=== PATIENT | male | born 1970 | race Hispanic/Latino ===

== ENCOUNTER 2024-10-17 06:47 | Emergency (ER) | payer OTHER ==
--- OUTSIDE RECORDS SUMMARY | 2024-10-17 06:50 | XMS REPORT | Continuity of Care Document ---
Author Name Unknown Address [address] [facility] [address] [place] [address] [facility] thconnect Address [address] [facility] [address] [place] [address] Care Team Providers Care Online Marketing Coordinator Name Role Phone Pcp, Patient Does Not Have A Primary Care Physic marah WESLEY SIMS Attending Clinician August Melendez RN, Lazaro Regan Attending Clinician Unavail darnell Toro MD, Sandra Attending Clinician [phone] Chris Levine MD Attending Clinician [phone] CHRIS LEVINE Attending Clinician Unavailable Paulina Silva Attending Clinician Unavailable Chris Levine MD Admitting Clinician [phone] Physician, No Primary or Family Admitting Clinic marah Unavailable Payers Payer Name Policy Type Policy Number Effective Date Expirati on Date Source Problems Condition Name Condition Details Condition Category Status Onset Date Resolution Date Last Treatment Date Treating Clinician Comments Source AV fistula occlusion, initial encounter AV fistula occlusion, initial encounter Disease Active 11-04 00:00: 00 [facility] ESRD on dialysis ESRD on dialysis Disease Active 11-04 00:00: 00 [facility] Allergies, Adverse Reactions, Alerts Allergy Name Allergy Type Status Severity Reaction(s) Onset Date Inactive Date Treating Clinician Comments Source Latex Propensi ty to adverse reaction s Active Unknown - See comments 11-04 00:00: 00 Peels skin [facility] Penicill in Propensi ty to adverse reaction s Active Hives 11-04 00:00: 00 [facility] PENICILL IN DRUG INGREDI Active Hives 11-04 00:00: 00 [facility] LATEX DRUG INGREDI Active Unknown-Cmnt 11-04 00:00: 00 [facility] penicill in G DA Active MO RASH-HIVES 2022-08 006 00:00: 00 [facility] NO KNOWN ALLERGIE S Drug Class Active [facility] Social History Social Habit Start Date Stop Date Quantity Comments [facility] function 2023-11-07 00:00:00 2023-11-07 00:00:00 [facility] Sex Assigned At 1970 00:00:00 1970 00:00:00 [facility] Smoking Status Start Date Stop Date Source Tobacco smoking consumption unknown [facility] Medications Ordered Medication Name Filled Medication Name Start Date Stop Date Current Medication? Ordering Clinician Indication Dosage Frequency Signature (SIG) Comments Components Source levothyroxi ne 25 mcg tablet 11-08 00:00: 00 02-07 04:59 :00 No [id number] 12.5ug Take 0.5 tablets by mouth every morning for 90 days. [facility] lidocaine 1% (PF) (XYLOCAINE) injection 0.3 mL 11-07 16:45: 00 11-07 15:34 :00 No [id number] .3mL 0.3 mL, Infiltrati on, DIALYSIS ONCE - [facility], 1 dose, On Tue11/08/23 at 1145, Routine [facility] aspirin 81 mg chewable tablet 11-07 00:00: 00 Yes [id number] 81mg Take 1 tablet by mouth in the morning. [facility] acetaminoph en 325 mg tablet 11-07 00:00: 00 11-08 04:59 :00 No [id number] 650mg Take 2 tablets by mouth every 6 (six) hours as needed for Pain (scale 1-3). [facility] atorvastati n 10 mg tablet 11-07 00:00: 00 02-06 04:59 :00 No [id number] 10mg Take 1 tablet by mouth at bedtime for 90 days. [facility] clopidogreL 75 mg tablet 11-07 00:00: 00 02-06 04:59 :00 No [id number] 75mg Take 1 tablet by mouth in the morning for 90 days. [facility] HYDROcodone -acetaminop hen 5-325 mg tablet 11-07 00:00: 00 11-15 04:59 :00 No [id number] 1{tbl} Take 1 tablet by mouth every 6 (six) hours as needed for Pain (scale 4-6) for up to 7 days. Indication s: acute pain [facility] clopidogreL (PLAVIX) 75 mg tablet 75 mg 11-06 14:00: 00 Yes 75mg 75 mg, Oral, DAILY, First dose on Tue11/07/23 at 0900, Until Discontinu ed, Routine [facility] hydralAZINE (APRESOLINE ) injection 10 mg 11-06 00:08: 09 Yes 10mg 10 mg, Slow IV Push, Q4HPRN, Starting on 11/06/23 at 1908, Until Discontinu ed, Routine, DBP=>100; SBP=>180, and HR < 70 [facility] labetaloL (NORMODYNE) injection 10 mg 11-06 00:08: 09 Yes 10mg 10 mg, Slow IV Push, Q4HPRN, Starting on 11/06/23 at 1908, Until Discontinu ed, Routine, SBP > 180 and HR > 70 [facility] clopidogreL (PLAVIX) 300 mg tablet 300 mg 11-05 23:45: 00 11-06 03:07 :00 No 300mg 300 mg, Oral, ONCE, 1 dose, On Tue11/06/23 at 1845, BRIANA [facility] aspirin chewable tablet 81 mg 11-05 14:00: 00 Yes 81mg 81 mg, Oral, DAILY, First dose on 11/06/23 at 0900, Until Discontinu ed, Routine [facility] pantoprazol e (PROTONIX) EC tablet 40 mg 11-05 14:00: 00 Yes 40mg 40 mg, Oral, DAILY, First dose on Tue11/06/23 at 0900, Until Discontinu ed, Routine
Indicatio n for use: Coagulopat hy - Prothrombi n Time > 1.5 times the control values [facility] levothyroxi ne (SYNTHROID) tablet 12.5 mcg 11-05 11:00: 00 Yes 12.5ug 12.5 mcg, Oral, QAM-0600, First dose on [place] 11/06/23 at 0600, Until Discontinu ed, Routine [facility] heparin (porcine) injection 5,000 Units 11-05 03:00: 00 Yes 5000U 5,000 Units, Subcutaneo us, Q8H, First dose on 11/05/23 at 2200, Until Discontinu ed, Routine [facility] Lidocaine (LIDOCARE) 4 % patch 1 Patch 11-05 02:30: 00 11-05 14:13 :00 No 1{patch } 1 Patch, Topical, Administer over 12 Hours, ONCE, 1 dose, On 11/05/23 at 2130, Routine [facility] atorvastati n (LIPITOR) tablet 10 mg 11-05 02:00: 00 Yes 10mg 10 mg, Oral, QHS, First dose on 11/05/23 at 2100, Until Discontinu ed, Routine [facility] FENTanyl PF (SUBLIMAZE (PF)) injection 25 mcg 11-05 01:32: 17 Yes 25ug 25 mcg, Slow IV Push, Q2HPRN, Starting on 11/05/23 at 2031, Until Discontinu ed, Routine, Pain (scale 7-10) [facility] HYDROcodone -acetaminop hen (NORCO 5) 5-325 mg tablet 1 tablet 11-05 01:31: 15 Yes 1{tbl} 1 tablet, Oral, Q6HPRN, Starting on 11/05/23 at 203, Until Discontinu ed, Routine, Pain (scale 4-6) [facility] hydralAZINE (APRESOLINE ) injection 10 mg 11-04 19:32: 57 11-06 00:08 :37 No 10mg 10 mg, Slow IV Push, Q4HPRN, Starting on 11/05/23 at 1432, Until 11/06/23 at 1908, Routine, DBP=>100; SBP=>180 [facility] acetaminoph en (TYLENOL) tablet 650 mg 11-04 19:32: 48 Yes 650mg 650 mg, Oral, Q6HPRN, Starting on 11/05/23 at 1432, Until Discontinu ed, Routine, Pain (scale 1-3) [facility] ondansetron (ZOFRAN (PF)) injection 4 mg 11-04 19:30: 50 Yes 4mg 4 mg, Slow IV Push, Q6HPRN, Starting on 11/05/23 at 1430, Until Discontinu ed, Routine, Nausea and Vomiting (N/V) [facility] Vital Signs Vital Name Observation Time Observation Value Comments S ource Systolic blood pressure 2023-11-08 19:03:00 177 mm[Hg] [facility] Diastolic blood pressure 2023-11-08 19:03:00 85 mm[Hg] [facility] Heart rate 2023-11-08 19:03:00 91 /min [facility] Body temperature 2023-11-08 18:42:00 36 Jennifer [facility] Respiratory rate 2023-11-08 18:42:00 18 /min [facility] Oxygen saturation in Arterial blood by Pulse oximetry 2023-11-08 18:42:00 92 /min [facility] Body weight 2023-11-08 17:57:00 116.6 kg [facility] Procedures Procedure Date / Time Performed Performing Clinician Source PHOSPHORUS 2023-11-08 10:12:[address] [facility] MAGNESIUM 2023-11-08 10:12:[address] [facility] BASIC METABOLIC PANEL (NA, K, CL, CO2, GLUCOSE, BUN, CREATININE, CA) 2023-11-08 10:12:[address] [facility] CBC WITHOUT DIFF 2023-11-08 10:12:[address] [facility] HEPATITIS B SURFACE ANTIBODY 2023-11-08 10:12:00 Lexie Flowers [facility] HEPATITIS B SURFACE ANTIGEN 2023-11-08 10:12:00 Lexie Flowers [facility] PHOSPHORUS 2023-11-07 09:26:[address] [facility] MAGNESIUM 2023-11-07 09:26:[address] [facility] BASIC METABOLIC PANEL (NA, K, CL, CO2, GLUCOSE, BUN, CREATININE, CA) 2023-11-07 09:26:[address] [facility] CBC WITHOUT DIFF 2023-11-07 09:26:[address] [facility] FL TIME OR (NON-REPORTABLE) 2023-11-06 22:55:00 Mora Russell [facility] ARTERIOVENOUS FISTULA THROMBECTOMY 2023-11-06 20:34:00 Chris Levine [facility] ENDOVASCULAR UPPER EXTREMITY ANGIOPLASTY 2023-11-06 20:34:00 Chris Levine [facility] VASCULAR STENTING 2023-11-06 20:34:00 Chris Levine [facility] BASIC METABOLIC PANEL (NA, K, CL, CO2, GLUCOSE, BUN, CREATININE, CA) 2023-11-06 11:19:00 Katharina Russell [facility] CBC WITH DIFF 2023-11-06 11:19:00 Katharina Russell [facility] COMP. METABOLIC PANEL ([id number]) 2023-11-05 18:46:00 Sandra Toro [facility] CBC WITH DIFF 2023-11-05 18:46:00 Sandra Toro [facility] PROTHROMBIN TIME / INR 2023-11-05 18:46:00 Sandra Toro [facility] ACTIVATED PARTIAL THRMPLAS HILDA 2023-11-05 18:46:00 Sandra Toro [facility] CONSENT/REFUSAL FOR DIAGNOSIS AND TREATMENT 2023-11-05 17:44:50 Doctor Unassigned, Leota [facility] Encounters Start Date/Time End Date/Time Encounter Type Admission Type Attending [facility] Care Facility Care Department Encounter ID Source 2024-02-10 16:50:00 2024-02-10 23:05:00 Emergency E MARY SIMSN [facility] [id number] 00 [facility] 2023-11-09 00:00:00 2023-11-09 00:00:00 Transition of Care Lazaro Melendez [place] [id number] [facility] 2023-11-05 13:14:00 2023-11-08 14:56:00 Hospital Encounter Sandra Toro [facility] [id number] [facility] 2023-11-05 13:14:00 2023-11-08 14:56:00 Inpatient X CHRIS LEVINE [facility] [id number] [facility] 2023-05-20 17:45:00 2023-05-20 19:20:00 Emergency EM Paulina Silva [facility] ER [id number] [facility] Results Test Description Test Time Test Comments Results Resul t Comments Source [place] TIME OR (NON-REPORTABLE) 2023-11-07 05:50:12 These images do not require a Radiology diagnostic report[facility] [id number] 19:07:12* Test Item Value Reference Range Interpretation Comme nts APTT Patient (test code = 3173-2) 38 26-36 H Lab Interpretation (test cod e = 45922-7) Abnormal [facility] / [id number] 19:07:12* Test Item Value Reference Range Interpretation Comme nts PROTIME PATIENT (test code = 5964-2) 12.0 10.1-12.6 INR (test code = 6301-6) 1.1 Normal INR <1.1; Warfarin Therapeutic range 2.0 to 3.0 or 2.5 to 3.5, depending upon the indications. Lab Interpretation (test code = 88325-0) Normal [facility] WITH [id number] 19:00:14* Test Item Value Reference Range Interpretation Comme nts WBC (test code = 6690-2) 7.39 4.20-10.70 RBC (test code = 789-8) 2.92 4.26-5.52 L HGB (test code = 718-7) 9.1 g/dL 12.2-16.4 L HCT (test code = 4544-3) 27.9 % 38.4-49.3 L MCV (test code = 787-2) 95.5 fL 81.7-95.6 MCH (test code = 785-6) 31.2 pg 26.1-32.7 MCHC (test code = 786-4) 32.6 g/dL 31.2-35.0 RDW-SD (test code = 85822-6) 47.9 fL 38.5-51.6 RDW-CV (test code = 788-0) 13.8 % 12.1-15.4 PLT (test code = 777-3) 184 150-328 MPV (test code = 00788-0) 9.4 fL 9.8-13.0 L NRBC/100 WBC (test code = 2778775884) 0.0 0.0-10.0 NRBC x10^3 (test code = 6621658793) See_Comment [Automated messa ge] The system which generated this result transmitted reference range: 10*3/?L. The reference range was not used to interpret this result as normal/abnormal. GRAN MAT (NEUT) % (test code = 770-8) 79.6 % IMM GRAN % (test code = 5848746774) 0.50 % LYMPH % (test code = 736-9) 10.0 % MONO % (test code = 5905-5) 7.2 % EOS % (test code = 713-8) 2.0 % BASO % (test code = 706-2) 0.7 % GRAN MAT x10^3(ANC) (test code = 8150824619) 5.88 10*3/uL 1.99-6.95 IMM GRAN x10^3 (test code = 4744159486) 0.04 10*3/uL 0.00-0.06 LYMPH x10^3 (test code = 731-0) 0.74 10*3/uL 1.09-3.23 L MONO x10^3 (test code = 742-7) 0.53 10*3/uL 0.36-1.02 EOS x10^3 (test code = 711-2) 0.15 10*3/uL 0.06-0.53 BASO x10^3 (test code = 704-7) 0.05 10*3/uL 0.01-0.09 Lab Interpretation (test code = 79176-7) Abnormal [facility] [id number] 19:00:00* Test Item Value Reference Range Interpretation Comme nts LACTIC ACID (test code = LACT) 1.4 MMOL/L 0.5-2.2 N BASIC METABOLIC [id number] 18:58:00* Test Item Value Reference Range Interpretation Comme nts SODIUM (test code = NA) 132 MMOL/L 133-145 L POTASSIUM (test code = K) 3.9 MMOL/L 3.6-5.2 N CHLORIDE (test code = CL) 93 MMOL/L 100-108 L CARBON DIOXIDE (test code = CO2) 31 MMOL/L 22-32 N GLUCOSE (test code = GLU) 271 MG/DL 65-99 H Results of this assay method may be falsely depressed orelevated if patient is taking sulfasalazine. BLOOD UREA NITROGEN (test code = BUN) 22 MG/DL 6-20 H GLOMERULAR FILTRATION RATE (test code = GFR) 14 56-130 L The Glomerular Filtration Rate is a calculated parameterbased on serum Creatinine, patient age and sex. GFR valuesless than 60 mL/min/1.73 square meters are indicative ofChronic Kidney Disease. Values less than 15 mL/min/1.73square meters indicate Kidney failure. The calculation forGFR is based on the CKD-EPI (2020) calculation. This formulais race indifferent and is the recommended formula for GFRby the National Kidney Foundation for Adults.The GFR will not calculate if the sex is unknown or if thepatient's age is <18 years. CREATININE (test code = CREAT) 4.66 MG/DL 0.60-1.00 H CALCIUM (test code = CA) 8.5 MG/DL 8.7-10.5 L HEPATIC FUNCTION [id number] 18:58:00* Test Item Value Reference Range Interpretation Comme nts TOTAL PROTEIN (test code = PROT) 8.0 G/DL 6.4-8.2 N ALBUMIN (test code = ALB) 3.2 G/DL 3.4-5.0 L GLOBULIN (test code = GLOB) 4.8 G/DL 1.5-3.8 H ALBUMIN/GLOBULIN RATIO (test code = A/G) 0.7 1.1-2.2 L BILIRUBIN TOTAL (test code = BILT) 0.3 MG/DL 0.0-1.0 N BILIRUBIN DIRECT (test code = BILD) 0.1 MG/DL 0.0-0.3 N SGOT/AST (test code = AST) 4 Units/L 15-37 L Results of this assay method may be falsely depressed orelevated if patient is taking sulfasalazine. SGPT/ALT (test code = ALT) 14 Units/L 30-65 L Results of this assay method may be falsely depressed orelevated if patient is taking sulfasalazine. ALKALINE PHOSPHATASE TOTAL (test code = ALKP) 85 Units/L 50-136 N BILIRUBIN INDIRECT (test code = BILIND) 0.2 MG/DL 0.0-0.7 N TROP-I HIGH [id number] 18:58:00* Test Item Value Reference Range Interpretation Comme nts TROP-I HIGH SENSITIVITY (test code = TROPIHS) 14 ng/L < 76 Results above 51 for females and 76 for males are consistent with IFCC Committee recommendations to use the 99th percentile of a normal population as a reference decision-limit. - The use of serial sampling and testing protocol is a recommended practive.- An elevated high sensitiveity troponin level alone is often not sufficient for diagnosis of myocardial infarction.- In order to distinguish acute elevations of high sensitivity troponin from other clinical conditions, the Fourth [place] Definition of Myocardial Infarction stresses clinical assessment and demonstration of a rise and/or fall in serial troponin results above the upper reference limit.Results of this assay method may be falsely depressed orelevated if patient is taking high doses of Biotin. CBC W/AUTO [id number] 18:44:00* Test Item Value Reference Range Interpretation Comme nts WHITE BLOOD CELL (test code = WBC) 10.77 x10 3/uL 4.80-10.80 N RED BLOOD CELL (test code = RBC) 3.60 x10 6/uL 4.7-6.1 L HEMOGLOBIN (test code = HGB) 11.2 G/DL 14.0-17.0 L HEMATOCRIT (test code = HCT) 35.1 % 42-52 L MEAN CELL VOLUME (test code = MCV) 97.5 FL 80-94 H MEAN CELL HGB (test code = MCH) 31.1 PG 27-31 H MEAN CELL HGB CONCENTRATION (test code = MCHC) 31.9 G/DL 33-37 L RED CELL DISTRIBUTION WIDTH (test code = RDW) 16.0 % 11.5-14.5 H PLATELET COUNT (test code = PLT) 220 x10 3/uL 150-450 N MEAN PLATELET VOLUME (test code = MPV) 8.8 FL 7.4-10.4 N NEUTROPHIL % (test code = NT%) 81.2 % 42-86 N LYMPHOCYTE % (test code = LY%) 9.7 % 24-44 L MONOCYTE % (test code = MO%) 6.9 % 0.0-4.0 H EOSINOPHIL % (test code = EO%) 1.9 % 0.0-2.7 N BASOPHIL % (test code = BA%) 0.3 % 0.0-0.5 N NEUTROPHIL # (test code = NT#) 8.76 x10 3/uL 1.8-7.7 H LYMPHOCYTE # (test code = LY#) 1.04 x10 3/uL 1.0-4.8 N MONOCYTE # (test code = MO#) 0.74 x10 3/uL 0.0-0.8 N EOSINOPHIL # (test code = EO#) 0.20 x10 3/uL 0.0-0.5 N BASOPHIL # (test code = BA#) 0.03 x10 3/uL 0.0-0.2 N Consult Notes Date/Time Note Provider Source 2023-11-05 15:00:34 Associated Order(s): CONSULT VASCULAR SURGERY VASCULAR SURGERY CONSULT Date of Service: 11/05/2023 Requesting Physician: ED Chief Complaint: AVG malfunction HPI Mr. Garcia is a 53 yo male who presents with LUE AVG malfunction. Patient is ESRD, had LUE AVG placed in [place] 5 years ago. Has been working fine until last night, after dialysis session patient go home and noted no thrill or pulse in the graft. His session yesterday went fine before that. He reports that his only ever access ever was a RIJ permcath but that came out 5 years ago. Has never had issues with the graft before. CURRENT HOSPITAL MEDICATIONS Current Facility-Administered Medications Medication Dose Route Frequency Last Rate Last Admin acetaminophen (TYLENOL) tablet 650 mg 650 mg Oral Q6HPRN [START ON 11/06/2023] aspirin chewable tablet 81 mg 81 mg Oral DAILY atorvastatin (LIPITOR) tablet 10 mg 10 mg Oral QHS heparin (porcine) injection 5,000 Units 5,000 Units Subcutaneous Q8H hydralAZINE (APRESOLINE) injection 10 mg 10 mg Slow IV Push Q4HPRN ondansetron (ZOFRAN (PF)) injection 4 mg 4 mg Slow IV Push Q6HPRN [START ON 11/06/2023] pantoprazole (PROTONIX) EC tablet 40 mg 40 mg Oral DAILY No current outpatient medications on file. HISTORIES Past Medical History: Diagnosis Date ESRD on dialysis Past Surgical History: Procedure Laterality Date ARTERIOVENOUS FISTULA CREATION Left No family history on file. Social History Socioeconomic History Marital status: Physical Exam Vitals: Vitals: 11/05/23 1311 11/05/23 1349 11/05/23 1400 BP: (!) 183/86 (!) 187/101 (!) 188/79 Pulse: 84 80 81 Resp: 18 18 18 Temp: 36.9 ?C (98.5 ?F) 36.9 ?C (98.5 ?F) SpO2: 96% 96% Weight: 115 kg (253 lb 8.5 oz) (-)=Negative,(+)=Positive General: awake and alert Extremity: LUE AVG (appears to be brachial/basilic) without any pulse/thrill throughout most although there is a faint pulse in the furthest distal segment. No arm swelling or bruising. Palpable radial pulse. LABORATORY Labs reviewed RADIOLOGY Radiology Reviewed PATHOLOGY N/a ASSESSMENT/PLAN: Mr. Garcia is a 53 yo male who presents with LUE AVG malfunction. Admit to vascular surgery Post and consent for LUE AVG thrombectomy tomorrow 11/04 Pre procedure CLD past midnight K 4.2, no need for urgent dialysis access, labs tomorrow Patient discussed with Dr. Levine. Katharina Russell MD General Surgery PGY-4 Associated attestation - Chris Levine MD - 11/06/2023 8:39 AM CDT I was present and performed the physical exam on 11/05/2023 and discussed the care with the resident staff, Dr. Russell. I agree with the note as written and I participated in all of the haque aspects of the decision making. Chris Levine MD [facility] - Health History and Physical Notes Date/Time Note Provider Source 2023-11-05 15:08:24 For full H&P please see consult note by me 11/05/2023 Katharina Russell MD General Surgery PGY-4 Associated attestation - Chris Levine MD - 11/06/2023 8:25 AM CDT I was present and performed the physical exam on 11/06/2023 and discussed the care with the resident staff, Dr. Russell. I agree with the note as written and I participated in all of the haque aspects of the decision making. Chris Levine MD [facility] - Health Notes Date/Time Note Provider Source 2023-11-09 15:48:12 TRANSITIONAL CARE MANAGEMENT ASSESSMENT 11/09/2023 Maurizio Garcia [id number] Maurizio Garcia is a 53 year old /White male was admitted on 11/05/[address] He was discharged on 11/08/23 with discharge disposition of HR- Routine Discharge. Admitting Physician: Chris Levine Discharge Diagnosis: Lt AVG malfunction No linked episodes TCM [id number] outreach documentation: CM made follow up call to patient post-discharge. No answer and call went to voicemail. CM left a discreet message with purpose of call and CM's call back information. Two attempts made to reach patient. Discharge Assessment Chart Assessed: 11/09/23 TCM Outreach Completed: 11/09/23 Future Appointments: [facility] 2023-11-09 12:06:29 CM made follow up call to patient post-discharge. No answer and call went to voicemail. CM left a discreet message with purpose of call and CM's call back information. [facility] 2023-11-08 14:36:17 Problem: Discharge Planning Goal: Adequate for discharge Outcome: Progressing as expected Goal: Effective communication Outcome: Progressing as expected Problem: Skin integrity Impaired (Risk or Actual) Goal: Wound healing Outcome: Progressing as expected Problem: Bleeding, Risk of Goal: Absence of impaired coagulation signs and symptoms Outcome: Progressing as expected Goal: Absence of active bleeding Outcome: Progressing as expected Problem: Infection Risk Goal: Absence of infection Outcome: Progressing as expected Problem: Procedure Routine Goal: Absence of post-procedure complications Outcome: Progressing as expected Goal: Knowledge of procedure Outcome: Progressing as expected [facility] Vita Pal RN [facility] 2023-11-08 12:41:35 HEMODIALYSIS NURSING NOTE Number Hours: 4.0 hours Bath: 2K 3 Calcium (standard dialysate) Heparin: zero Access: left AVG upper arm Net UF: 4 liters Weight: pre 120.6 kg, post 116.6 kg Post BP 168/70 Post Pulse 89 Antibiotics/Medications Given: none Complications/Events of Treatment: had to recannulate venous site due to needle clotting. Was able to run full session at BFR of 350. No complaints reported by patient. Tolerated UF goal well. No prolonged bleeding at site post HD. Verbal report given to: DAVIDA Molina Mode of Transport Back to Unit: wheelchair and accompanied by transporter See hemodialysis flowsheet for details of treatment. Abby Davis RN [facility] 2023-11-08 10:22:34 Hemodialysis Plan of care reviewed r/t treatment time, UF goal. I reviewed care of dialysis AVG during tx. Pt updated during tx as needed. I reviewed possible side effects of HD tx, such as s/s of hypotension, weakness, dizziness, H/A, cramping (during tx and at rare times after tx), n/v, vision changes, CP or any other concerns. Patient acknowledge understanding of treatment plan. Problem: Procedure Routine Goal: Absence of post-procedure complications Outcome: Progressing as expected Note: Hemodialysis tx Goal: Knowledge of procedure Outcome: Progressing as expected Note: Hemodialysis tx T [facility] 2023-11-08 05:27:55 Problem: Discharge Planning Goal: Adequate for discharge Outcome: Progressing as expected Goal: Effective communication Outcome: Progressing as expected Problem: Skin integrity Impaired (Risk or Actual) Goal: Wound healing Outcome: Progressing as expected Problem: Bleeding, Risk of Goal: Absence of impaired coagulation signs and symptoms Outcome: Progressing as expected Goal: Absence of active bleeding Outcome: Progressing as expected Problem: Infection Risk Goal: Absence of infection Outcome: Progressing as expected ILLO Gudino RN [facility] 2023-11-07 05:01:08 Problem: Discharge Planning Goal: Adequate for discharge Outcome: Progressing as expected Goal: Effective communication Outcome: Progressing as expected Problem: Skin integrity Impaired (Risk or Actual) Goal: Wound healing Outcome: Progressing as expected Problem: Bleeding, Risk of Goal: Absence of impaired coagulation signs and symptoms Outcome: Progressing as expected Goal: Absence of active bleeding Outcome: Progressing as expected Problem: Infection Risk Goal: Absence of infection Outcome: Progressing as expected [facility] 2023-11-06 18:02:16 1635-SURGEON, DR. LEVINE, AND ANIMAL SHELTER MANAGER, DR. DAY NOTIFIED OF LATEX PRODUCT BEING USED (ESTHELA) IN SETTING OF LATEX ALLERGY. STATES WILL MONITOR PT FOR S/S. Jael Alcala RN [facility] 2023-11-06 16:28:00 FULL OPERATIVE NOTE Date of Surgery: 11/06/2023 Faculty physician: Chris Levine MD Resident physician: Kaitlynn Grace MD Anesthesia Type: General Pre-operative diagnosis: End stage renal disease, malfunction of left upper extremity arteriovenous graft Post-operative diagnosis: Same Indication: Maurizio Garcia is a 53 year old male with above diagnosis requiring intervention to reestablish dialysis access. Plan is to perform thrombectomy and fistulogram to treat any underlying disease. Risks and benefits of the procedure were discussed with the patient who agrees to proceed. 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 from being stuck the most; which had moderate response to balloon angioplasty - left axillary vein just proximal to the anastomosis has total occlusion, large thrombus just distal to the venous anastomosis, then a large collateral to another venous collateral in the upper arm which provides the outflow for the graft - left axillary vein occlusion successfully recanalized with satisfactory brisk flow into the central veins where no stenosis is visualized - good thrill over graft and palpable radial pulse at the end of the case Procedure: The patient was brought to the operating room and positioned supine. General anesthesia was induced. Left upper extremity was prepped and draped in the usual sterile fashion. Timeout was performed. A longitudinal incision was made distal to the arterial anastomosis in the distal arm along the graft. This was deepened with electrocautery and the graft was circumferentially dissected out. A transverse incision was made in the graft about half of the circumference. Venous limb was controlled with umbilical tape. Open thrombectomy of the venous limb using 5 Fr Esthela embolectomy catheter was performed. There were multiple areas of resistance and a 0.035 stiff glidewire was used to guide the catheter past the areas of stenoses. After several passes and evacuation of thrombus, the attention was turned to the arterial limb. The venous limb was clamped. Open thrombectomy was performed in similar fashion and robust flow was reestablished. The arterial limb was clamped. An 11 Fr sheath was introduced into the venous limb and secured with umbilical tape. The wire was again advanced into the venous limb under fluoroscopy but was unable to guide the wire into the axillary vein. Fistulogram demonstrated above findings with total occlusion of the axillary vein. Angled glide catheter was used to support the wire and the occlusion was successfully crossed this time. The wire was advanced into the superior vena cava. The catheter was removed, and the occlusion was treated with 8 x 60 mm Cataumet balloon. Fistulogram demonstrated recanalization of the axillary vein. The lesion was treated with 8 x 60 mm Innova stent. The completion looked satisfactory. Fistulogram of the venous limb demonstrated severe diffuse stenosis at the site of frequent access. This was treated with 6 x 60 mm Cataumet balloon with moderate response. Central venogram demonstrated patent system. The decision was made to close the graftotomy. The sheath was removed, and the venous limb was clamped. Graft was closed with interrupted 5-0 Prolene sutures. After release of the clamps and completion of graftotomy closure, the thrill was felt to be weak despite excellent back bleeding from both limbs. The limbs were clamped, the sutures cut, and back bleeding was examined again which appeared appropriate. The graftotomy was closed in the same fashion. This time weak thrill was palpable over the graft and the decision was made to close. The incision was closexd with interrupted dermal 3-0 vicryl sutures. The skin was closed with dermabond. Patient was transiently hypoxic and hypotensive, but was resuscitated by anesthesia. The patient tolerated the procedure well and was taken to the postanesthesia care unit in stable condition. Complications: none apparent Estimated blood loss: 100 mL Specimens: none Drains: none Specific postop instructions: - Ok to use the graft for dialysis, avoid around the incision - Plavix loading dose today, 75 mg daily from tomorrow Kaitlynn Grace MD Vascular Surgery PGY-3 Associated attestation - Chris Levine MD - 11/07/2023 2:06 PM CDT I was present in the OR for all of the haque portions of the procedure and immediately available throughout the entire procedure. Chris Levine MD INGE-VASCULAR SURGERY [facility] 2023-11-05 14:46:02 Report called to receiving nurse 9C. Answered all questions. Ready to receive pt. Imani Rodriguez RN [facility] 2023-11-05 13:08:30 Maurizio Garcia is a 53 year old male received from triage with CC of L AVF malfunction. Pt stated, "I have HD MWF,. The L AVF clogged yesterday during HD. HD was completed. Pain 6/10, soreness. No fever, chills, or bleeding. Happened two years ago." Pt is A/Ox4/A w/cane, and L BKA, skin w/d/I, L AVF, GCS 15 and sending to a room for evaluation. [facility] 2023-11-05 12:38:[address] [facility] Emergency Department Note Patient Name: Maurizio Garcia Date of : 1970 53 year old male Treatment Room: 117/117 Primary Care Physician: No primary care provider on file. Patient Escorted by: Family [5] Mode of Arrival: Personal means [1] EMS Treatment Prior to ED Arrival: Exam Limited by: none Travel and Exposure Screening: Symptoms Does patient have any of these symptoms?: (not recorded) Exposure Screening Has patient had contact with someone with a communicable disease in the last month?: (not recorded) Diseases exposed to:: (not recorded) Is Patient ?: (not recorded) Exposure Date: (not recorded) Chief Complaint: No chief complaint on file. History of Present Illness: complains of L AVF malfunction. Has HD MWF. He states the AVF was accessed in the wrong place yesterday and it would not work but then another nurse accessed it more proximally and was able to complete his dialysis session. However, he states that when he woke up today his arm was swollen and tender proximal to the fistula and there was no thrill. Something similar happened 2 years ago and they had to do surgery to open it up again. Pain 6/10, soreness. No fever, chills, or bleeding. Review of Systems: Review of Systems Constitutional: Negative for chills and fever. SEE HPI for other pertinent positives & negatives. HENT: Negative for congestion, sinus pressure and sore throat. Respiratory: Negative for cough, chest tightness and shortness of breath. Cardiovascular: Negative for chest pain, palpitations and leg swelling. Gastrointestinal: Negative for abdominal pain, diarrhea, nausea and vomiting. Genitourinary: Negative for dysuria and hematuria. Musculoskeletal: Negative for arthralgias, back pain and myalgias. Except as in HPI Skin: Negative for rash and wound. Neurological: Negative for dizziness, weakness and headaches. Past Medical History/Immunizations: Past Medical History: Diagnosis Date ESRD on dialysis Problem List: There is no problem list on file for this patient. Allergies: Allergies Allergen Reactions Latex Unknown - See comments Peels skin Penicillin Hives Past Social History: Substance & Sexual Activity No substance use or sexual activity history on file. Past Surgical History: Past Surgical History: Procedure Laterality Date ARTERIOVENOUS FISTULA CREATION Left Physical Exam: ED Triage Vitals [11/05/23 1311] Weight 115 kg (253 lb 8.5 oz) Actual or estimated Height BP (!) 183/86 Pulse 84 Resp 18 Temp 36.9 ?C (98.5 ?F) Temp src SpO2 96 % Measured on Room air Physical Exam Vitals and nursing note reviewed. Constitutional: General: He is awake. He is not in acute distress. Appearance: Normal appearance. He is well-developed. He is obese. He is not ill-appearing or diaphoretic. HENT: Head: Normocephalic and atraumatic. Eyes: General: No scleral icterus. Extraocular Movements: Extraocular movements intact. Cardiovascular: Rate and Rhythm: Normal rate and regular rhythm. Arteriovenous access: Left arteriovenous access is present. Comments: Left upper arm AV fistula with no thrill Pulmonary: Effort: No accessory muscle usage or respiratory distress. Abdominal: General: There is no distension. Palpations: Abdomen is soft. Abdomen is not rigid. Tenderness: There is no abdominal tenderness. There is no guarding or rebound. Musculoskeletal: General: No tenderness or deformity. Normal range of motion. Left upper arm: Swelling (There is an area proximal to the fistula that is firm and somewhat tender.) present. Right lower leg: No edema. Left Lower Extremity: Left leg is amputated below knee. Skin: General: Skin is warm and dry. Findings: No erythema or rash. Comments: Hyperpigmentation on the right lower leg that the patient states is baseline Neurological: General: No focal deficit present. Mental Status: He is alert and oriented to person, place, and time. Psychiatric: Attention and Perception: He is attentive. Mood and Affect: Mood and affect normal. Speech: Speech normal. Behavior: Behavior is cooperative. Radiology: (Reviewed by me) No results found for this visit on 11/05/23. Lab Results (24h): (Reviewed by me) No results found for this or any previous visit (from the past 24 hour(s)). Orders and Treatments: Orders Placed This Encounter Procedures CBC WITH DIFF ACTIVATED PARTIAL THRMPLAS HILDA PROTHROMBIN TIME / INR COMP. METABOLIC PANEL (12222) Consult Vascular Surgery No orders of the defined types were placed in this encounter. ED COURSE ED Course as of 11/05/23 1931 Sat Nov 05, 2023 1432 Admitted to vascular surgery [] 1413 COMP. METABOLIC PANEL (19677)(!) Hyperglycemia elevated BUN and creatinine, likely unremarkable in this diabetic dialysis patient. [LS] 1413 ACTIVATED PARTIAL THRMPLAS HILDA(!) Coags unremarkable [LS] 1413 PROTHROMBIN TIME / INR [LS] 1412 CBC WITH DIFF(!) Anemic. No old labs to compare but likely insignificant this dialysis patient. [LS] [address] Russell, who will see patient in ED. [LS] ED Course User Index [LS] Sandra Toro MD Diagnosis/Impression as of 11/05/231930 AV fistula occlusion, initial encounter ESRD on dialysis Diagnosis/Impression: ICD-10-CM 1. AV fistula occlusion, initial encounter T82.898A Disposition/Condition: ED Disposition None Discharge Medications: Patient's Medications No medications on file Follow-up: MDM: Medical Decision Making The patient presents with a loss of the usual thrill in his AV fistula. His last dialysis was yesterday. He reports some pain in the arm but declines pain medicine at this time. Will check labs and get a vascular surgery consult. See ED course Problems Addressed: AV fistula occlusion, initial encounter: complicated acute illness or injury ESRD on dialysis: chronic illness or injury Amount and/or Complexity of Data Reviewed Independent Historian: spouse External Data Reviewed: labs and notes. Labs: ordered. Decision-making details documented in ED Course. Discussion of management or test interpretation with external provider(s): see ED Course Risk OTC drugs. Prescription drug management. Decision regarding hospitalization. Portions of this note were completed using [employer]. Occasional phonetic or grammatical errors may escape proofreading. Electronically signed by: Sandra Toro M.D., [facility] Director Workers Compensation Clinical Professor of Emergency Medicine 11/05/2023 1:14 PM Sandra Toro MD 11/05/231930 [facility] 2023-05-20 18:46:00 [facility] ([facility]) OR A CAMPUS OF [facility] EMERGENCY PROVIDER REPORT REPORT#:[id number] REPORT STATUS: Signed DATE:05/20/23 TIME: 1845 PATIENT: MAURIZIO GARCIA UNIT #: [id number] ROOM/BED: AGE: 53 SEX: M PCP PHYS: No Primary or Family Physician SERVICE AUTHOR: Paulina Silva MD * ALL edits or amendments must be made on the electronic/computer document * HPI-Rash/Abscess/Cellulitis Free Text HPI Notes Free Text HPI Notes Patient is a 53-year-old male with a history of hypertension, ESRD on dialysis Tuesday, last dialysis today, denies diabetes, endorses obesity, who presents with a chief complaint of skin infection The patient got a crack in the carotid scab over his left lower extremity amputation site on Tuesday. On Tuesday he began to have some pain at the site, and yesterday and today he has noticed it to be erythematous, warm to touch, painful. No drainage. The patient states that he does not have fever, he does not have body aches, no nausea or vomiting. The patient states that his temperature was 37.9 degrees prior to coming to the ER, at a time during which she had lots of blankets on him. He denies other symptomatology at this time General Initial Greet Date/Time 05/20/231815 Presentation Chief Complaint Red area Review of Systems Focused Review of Systems Constitutional Denies: Chills, Fever. GI Denies: Abdominal pain. Past Medical History - Adult Stated Complaint INFECTION Allergies Coded Allergies: penicillin G (Intermediate, RASH-HIVES 05/20/23) Smoking status for patients 13 years old or older: Former Smoker Physical Exam Vital Signs Vital Signs First Documented: Result Date Time Pulse Ox 96 05/20 1814 B/P 142/75 05/20 1814 B/P Mean 97.5 05/20 1814 O2 Delivery Room air 05/20 1814 Temp 37.5 05/20 1814 Pulse 82 05/20 1814 Resp 16 05/20 1814 Last Documented: Result Date Time Pulse Ox 96 05/20 1814 B/P 142/75 05/20 1814 B/P Mean 97.5 05/20 1814 O2 Delivery Room air 05/20 1814 Temp 37.5 05/20 1814 Pulse 82 05/20 1814 Resp 16 05/20 1814 Review of Vital Signs Reviewed Focused PE General/Const General/Const Awake, Alert Ears/Nose/Throat Ears/Nose/Throat Atraumatic, Airway patent Resp/Chest Respiratory/Chest No respiratory distress, No retractions Cardiovascular Cardiovascular Cap refill not delayed, Peripheral circulation NL MS Upper Extrem Upper Extremity/MS Atraumatic, Inspection NL, Full range of motion MS Lower Extrem Text/Dict Notes left lower extremity amputation site: not fluctuant or indurated. erythematous, warm to touch, slightly tender Skin Skin Warm, Dry Neurologic Neurologic Speech NL, No motor deficits Interpretation Diagnostics Lab Results Interpretation Results Laboratory Tests 05/20/231833: [Embedded Image Not Available] Laboratory Tests: 05/20 Chemistry Sodium (133 - 145 MMOL/L) 132 L Potassium (3.6 - 5.2 MMOL/L) 3.9 Chloride (100 - 108 MMOL/L) 93 L Carbon Dioxide (22 - 32 MMOL/L) 31 BUN (6 - 20 MG/DL) 22 H Creatinine (0.60 - 1.00 MG/DL) 4.66 H Estimated GFR (MDRD) (56 - 130) 14 L Glucose (65 - 99 MG/DL) 271 H Lactic Acid (0.5 - 2.2 MMOL/L) 1.4 Calcium (8.7 - 10.5 MG/DL) 8.5 L Total Bilirubin (0.0 - 1.0 MG/DL) 0.3 Direct Bilirubin (0.0 - 0.3 MG/DL) 0.1 Indirect Bilirubin (0.0 - 0.7 MG/DL) 0.2 AST (15 - 37 Units/L) 4 L ALT (30 - 65 Units/L) 14 L Alkaline Phosphatase (50 - 136 Units/L) 85 Troponin I High Sens (< 76 ng/L) 14 Total Protein (6.4 - 8.2 G/DL) 8.0 Albumin (3.4 - 5.0 G/DL) 3.2 L Globulin (1.5 - 3.8 G/DL) 4.8 H Albumin/Globulin Ratio (1.1 - 2.2) 0.7 L Hematology WBC (4.80 - 10.80 x10 3/uL) 10.77 RBC (4.7 - 6.1 x10 6/uL) 3.60 L Hgb (14.0 - 17.0 G/DL) 11.2 L Hct (42 - 52 %) 35.1 L MCV (80 - 94 FL) 97.5 H MCH (27 - 31 PG) 31.1 H MCHC (33 - 37 G/DL) 31.9 L RDW Coeff of Malu (11.5 - 14.5 %) 16.0 H Plt Count (150 - 450 x10 3/uL) 220 MPV (7.4 - 10.4 FL) 8.8 Neut % (Auto) (42 - 86 %) 81.2 Lymph % (Auto) (24 - 44 %) 9.7 L Faulk % (Auto) (0.0 - 4.0 %) 6.9 H Eos % (Auto) (0.0 - 2.7 %) 1.9 Baso % (Auto) (0.0 - 0.5 %) 0.3 Eos # (Auto) (0.0 - 0.5 x10 3/uL) 0.20 Baso # (Auto) (0.0 - 0.2 x10 3/uL) 0.03 Absolute Neuts (auto) (1.8 - 7.7 x10 3/uL) 8.76 H Absolute Lymphs (auto) (1.0 - 4.8 x10 3/uL) 1.04 Absolute Monos (auto) (0.0 - 0.8 x10 3/uL) 0.74 Microbiology: Date/Time Procedure - Status Source Growth 05/20 1834 Blood Culture - RECD BLOOD 05/20 1828 Blood Culture - RECD BLOOD Lab Statement Laboratory studies reviewed and considered in the medical decision-making. ECG #1 Interpretation Text/Dict Note Rate 80, sinus rhythm, no STEMI Date 05/20/23 Time 1836 Interpreted by and reviewed by me, Independently interpreted Re-Evaluation MDM Free Text MDM Notes Free Text MDM Notes Differential diagnosis included sepsis, hyperkalemia, cellulitis, NSTI The patient has slight erythema, tenderness to the stump. I counseled the patient on his having relative immunocompromise. He has ESRD. I informed him that cellulitis can spread quickly in him. The patient ensured me that he feels fine systematically. He is noted to not have leukocytosis, fever, symptoms of systemic illness at this time. Nevertheless, I offered hospital admission to follow this skin infection at its onset. The patient had a strong desire to start with outpatient treatment, return to emergency department with any worsening of symptomatology. Shared decision-making was made, the patient appearing very reliable, we will pursue outpatient dual antibiotic therapy, with renally dosed medications, with close follow-up with the ER if no resolution. Patient understands that any difficulty obtaining outpatient management, with continuation of the symptomatology, he should have return visit to ER. Social determinants of health were considered in this medical encounter, patient with no access to outpatient follow-up due to recently moving to region, this influence my decision making. ED Course Medication(s) Ordered Medication(s) Ordered: Anti-Infective Agents Sig/Deshawn Start time Last Medication Dose Route Stop Time Status Admin Ceftriaxone Sodium 1,000 MG X1ED STA 05/20 1817 DCDr 05/20 Sodium Chloride 10 ML IV 05/21 Central Nervous System Agents Sig/Deshawn Start time Last Medication Dose Route Stop Time Status Admin Acetaminophen 650 MG X1ED STA 05/20 1911 DC 05/20 PO 05/20 Hydromorphone HCl 0.2 MG X1ED STA 05/20 1911 DC 05/20 IV 05/20 Patient Discharge Departure Vital Signs/Condition Vital Signs First Documented: Result Date Time Pulse Ox 96 05/20 1814 B/P 142/75 05/20 1814 B/P Mean 97.5 05/20 1814 O2 Delivery Room air 05/20 1814 Temp 37.5 05/20 1814 Pulse 82 05/20 1814 Resp 16 05/20 1814 Last Documented: Result Date Time Pulse Ox 96 05/20 1814 B/P 142/75 05/20 1814 B/P Mean 97.5 05/20 1814 O2 Delivery Room air 05/20 1814 Temp 37.5 05/20 1814 Pulse 82 05/20 1814 Resp 16 05/20 1814 All vital signs available at the time of this entry have been reviewed. Condition Stable Clinical Impression Clinical Impression Primary Impression: Left leg cellulitis Disposition Decision Discharge )( Discharged to Home Yes )( Time 1913 )( Date 05/20/23 Discharge/Care Plan (Auto) Prescriptions Current Visit Scripts ACETAMINOPHEN (TYLENOL) 500 MG PO Q6H PRN PRN PAIN ACETAMINOPHEN (TYLENOL) 500 MG PO Q6H PRN PRN PAIN #24 TABS FOR PAIN CEPHALEXIN (KEFLEX) 250 MG PO BID 7 Days #14 CAPS DOXYCYCLINE HYCLATE (VIBRAMYCIN) 100 MG PO Q12H DOXYCYCLINE HYCLATE (VIBRAMYCIN) 100 MG PO Q12H #20 CAPS GABAPENTIN (NEURONTIN) 100 MG PO TID 14 Days #42 CAPS Patient Instructions ED Cellulitis Referrals Provider Referral: Dale Cisse MD Follow-Up: 1-2 Days Notes: PLEASE RETURN TO ER IF WORSENING INFECTION Address: [address] [place] [id number] at [id number] RPT #:[id number] END OF REPORT [facility] 2023-05-20 18:37:00 [id number] [place], [place] PATIENT NAME: MAURIZIO GARCIA ADMIT DATE: 05/20/23 ACCOUNT NO: [id number] ROOM NO: AGE: 53 REPORT TYPE: ELECTROCARDIOGRAM SEX: M : 74 ADMITTING PHYSICIAN: ATTENDING PHYSICIAN:Paulina Silva MD Order: [id number] Test Reason : CODE SEPSIS Test Date/Time Stamp: TueMay 20 2023 18:37:40 Blood Pressure : / mmHG Vent. Rate : 080 BPM Atrial Rate : 080 BPM P-R Int : 196 ms QRS Dur : 088 ms QT Int : 408 ms P-R-T Axes : 016 -01 099 degrees QTc Int : 470 ms Normal sinus rhythm Possible Anterior infarct , age undetermined ST and T wave abnormality, consider lateral ischemia Abnormal ECG Confirmed by Paulina Silva MD ([id number]), photographic editor SHABBIR PEREZ ([id number]) on 06/28/2023 12:05:29 PM Referred By: Self Referred Confirmed by:Paulina Silva MD at 1205 PATIENT NAME: MAURIZIO GARCIA [facility]
[2024-10-17] MEDS ORDERED: FAMOTIDINE 20 MG/2 ML VIAL IV ONE (07:54)
[2024-10-17] MEDS ORDERED: VANCOMYCIN 1 GM/VIAL ONE (07:54)
[2024-10-17] MEDS ORDERED: ACETAMINOPHEN 500 MG TAB ONE (07:54)
[2024-10-17 07:55] LABS: Influenza A Ag Positive; Influenza B Ag Negative; SARS-CoV-2 Antigen Rapid Res Negative (Negative)
[2024-10-17] MEDS ORDERED: NA CHLORIDE 0.9% 250 ML ONE (07:55)
[2024-10-17 08:04] LABS: Absolute Lymphocytes (CBC) 0.2 K/uL (0.7-4.9); Absolute Monocytes 0.7 K/uL (0.1-1.3); Absolute Neutrophil 4.4 K/uL (1.8-8.0); Basophils % 0.4 % (0-1.3); Eosinophils % 0.4 % (0-4.4); Hematocrit 29.4 % (39.6-49.0); Hemoglobin 9.4 g/dL (13.6-17.9); Lymphocytes % 4.1 % (15.3-44.8); MCH 28.6 pg (27.0-35.0); MCHC 31.9 g/dL (32.0-36.0); MCV 89.6 fL (80-100); MPV 7.4 fL (7.6-11.3); Monocytes % 13.1 % (3.3-12.3); Nucleated Red Blood Cells % 0.1 % (0-0); Platelets 210 thou/uL (152-406); RBC Red Blood Cell Count 3.28 M/uL (4.33-5.43); Red Cell Distribution Width 18.5 % (12.1-15.2)
[2024-10-17 08:16] LABS: PT Prothrombin Time 15.3 SECONDS (10.0-13.0); PTT, Activated Partial Thromb 38.7 SECONDS (24.3-36.9); Protime INR 1.36
[2024-10-17 08:34] LABS: Albumin 3.3 g/dL (3.4-5.0); Albumin/Globulin Ratio 0.6 (1.1-1.8); Alkaline Phosphatase 96 U/L (45-117); Anion Gap 13.2 mEq/L (5.0-15.0); BUN Blood Urea Nitrogen 46 mg/dL (7-18); Bicarbonate 26 mEq/L (21-32); Bilirubin Direct 0.2 mg/dL (0-0.2); Bilirubin Indirect, Calculated 0.2 mg/dL (0.2-0.8); Bilirubin Total 0.4 mg/dL (0.2-1.0); Globulin 5.2 g/dL (2.3-3.5); Glomerular Filtration Rate 8 ml/min (=/>90); Glucose Level 130 mg/dL (74-106); Magnesium 2.1 mg/dL (1.6-2.4); NT PRO-BNP 44882 pg/mL (<125); Potassium 5.2 mEq/L (3.5-5.1); Protein, Total 8.5 g/dL (6.4-8.2); Sodium Level 133 mEq/L (136-145)
[2024-10-17 08:35] LABS: ALT/SGPT < 14 U/L (16-61); AST/SGOT < 10 U/L (15-37)
--- NOTE | 2024-10-17 08:42 | RAD REPORT ---
EXAMINATION: ONE VIEW CHEST XR CLINICAL INDICATION: Male, 54 years old.,Cough;Dyspnea TECHNIQUE: Frontal chest projection is submitted. Examination is limited by patient positioning and t echnique. COMPARISON: No prior exam. FINDINGS: Bibasilar and perihilar patchy airspace opacities with layering small to moderate effusions, with mil d central interstitial prominence. No pneumothorax. Heart is mildly enlarged. Mediastinal contours are unremarkable. IMPRESSION: Findings suggesting pulmonary edema with layering effusions as above.
[2024-10-17] MEDS ORDERED: Levofloxacin 750mg IV 750 MG/150 ML BAG IV ONE (09:00)
[2024-10-17] MEDS ORDERED: Levofloxacin500mg IV 500 MG/100 ML BAG IV ONE (09:08)
--- NOTE | 2024-10-17 09:13 | ER ---
Nurse's Notes [facility] Name: Rasheed Dodson Age: 54 yrs Sex: Male : 1970 Arrival Date: 10/17/2024 Time: 06:47 Bed 15 Private MD: Diagnosis: Fever, unspecified;Pleural effusion, not elsewhere classified;Dependence on renal dialysis;Influenza due to identified novel influenza A virus with other manifestations;Hyperkalemia Presentation: 10/17 06:55 Chief complaint: EMS states: patient is having a chest pain before treatment starts at [address] 06:55 Coronavirus screen: Client denies travel out of the [place] in the last 14 days. Ebola [facility] Screen: Patient negative for fever greater than or equal to 101.5 degrees Fahrenheit, and additional compatible Ebola Virus Disease symptoms Patient denies exposure to infectious person. Patient denies travel to an Ebola-affected area in the 21 days before illness onset. Initial Sepsis Screen: Does the patient meet any 2 criteria? No. Patient's initial sepsis screen is negative. Does the patient have a suspected source of infection? No. Patient's initial sepsis screen is negative. Risk Assessment: Do you want to hurt yourself or someone else? Patient reports no desire to harm self or others. Onset of symptoms was October 17, 2024. Care prior to arrival: Medication(s) given: Tylenol, 650 mg, Oxygen administered. via nasal cannula. 06:55 Method Of Arrival: EMS: [place] [id number] 06:55 Acuity: ROCK 3 rg5 Triage Assessment: 06:55 General: Appears in no apparent distress. Behavior is calm, cooperative. Pain: rg5 Complains of pain in chest Pain began 1 hour ago. EENT: No deficits noted. Neuro: Level of Consciousness is awake, alert, obeys commands, Oriented to person, place, time. Cardiovascular: Reports chest pain, Patient's skin is warm and dry. Respiratory: Airway is patent Trachea midline Respiratory effort is even, unlabored, Respiratory pattern is regular. GI: Abdomen is round non-distended. : No signs and/or symptoms were reported regarding the genitourinary system. Derm: Skin is intact, Skin is dry, Skin is normal, Skin temperature is warm. Historical: - Allergies: 06:55 PENICILLINS; rg5 06:55 CEPHALOSPORINS; rg5 - PMHx: 06:55 hemodialysis- MWF; rg5 - Immunization history:: Adult Immunizations not up to date. - Infectious Disease History:: Denies. - Family history:: not pertinent. - Social history:: Smoking status: Patient reports the use of cigarette tobacco products, denies chronic smoking, but will smoke occasionally. Screenin:17 [facility] ED Fall Risk Assessment (Adult) History of falling in the last 3 months, db including since admission No falls in past 3 months (0 pts) Confusion or Disorientation No (0 pts) Intoxicated or Sedated No (0 pts) Impaired Gait Yes (1 pt) Mobility Assist Device Used Yes (1 pt) Altered Elimination No (0 pt) Score/Fall Risk Level 0 - 2 = Low Risk Oriented to surroundings, Maintained a safe environment. Abuse screen: Denies threats or abuse. Denies injuries from another. Nutritional screening: No deficits noted. Tuberculosis screening: No symptoms or risk factors identified. Assessment: 07:00 Reassessment: SEE TRIAGE ASSESSMENT. General: Appears in no apparent distress. Behavior rg5 is calm, cooperative, appropriate for age. Pain: Complains of pain in chest Pain began 1 hour ago. Neuro: Level of Consciousness is awake, alert, Oriented to person, place, time, situation, Appropriate for age. 10:08 Reassessment: Patient appears in no apparent distress at this time. Patient and/or db family updated on plan of care and expected duration. Pain level reassessed. Patient is alert, oriented x 3, equal unlabored respirations, skin warm/dry/pink. 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 db 11:00 Reassessment: Patient appears in no apparent distress at this time. Patient and/or db family updated on plan of care and expected duration. Pain level reassessed. Patient is alert, oriented x 3, equal unlabored respirations, skin warm/dry/pink. Reassessment: Patient states feeling better. Patient states symptoms have improved. General: Appears in no apparent distress. comfortable, Behavior is calm, cooperative. Pain: Pain does not radiate. Vital Signs: 07:48 BP 115 / 84; Pulse 79; Resp 18; Pulse Ox 100% on R/A; Weight 107 kg; db 08:07 Temp 102; db 10:07 BP 118 / 63; Pulse 72; Resp 20; Temp 99; Pulse Ox 95% on 2 lpm NC; db 11:00 BP 129 / 66; Pulse 66; Resp 20; Pulse Ox 96% on R/A; db ED Course: 06:52 Patient arrived in ED. vc1 06:55 Arm band placed on. EKG completed in triage. Results shown to MD. rg5 07:00 Mark Toribio MD is Attending Physician. annie 07:24 Halima Ortiz, DAVIDA is Primary Nurse. db 07:31 First set of blood cultures drawn. db 07:32 Triage completed. rg5 07:43 Initial lab(s) drawn, by me, sent to lab. Second set of blood cultures drawn. Inserted db saline lock: 20 gauge in right wrist, using aseptic technique. Blood collected. Flushed with 10 mL NS. 07:52 XRAY Chest (1 view) In Process Unspecified. EDMS 09:12 Jeevan Fountain is Hospitalizing Provider. annie 10:56 Dionicio Chavez DO is Referral Physician. annie 11:25 Patient has correct armband on for positive identification. Bed in low position. Call db light in reach. Side rails up X 1. Provided Education on: DISCHARGE AND FOLLOWUP. Client placed on continuous cardiac and pulse oximetry monitoring. NIBP monitoring applied. tamper operator on. Pulse ox on. NIBP on. Warm blanket given. Pillow given. 11:25 No provider procedures requiring assistance completed. IV discontinued, intact, db bleeding controlled, No redness/swelling at site. Response to oxygen therapy: DC ON RA. Administered Medications: 08:00 Drug: Acetaminophen PO 1000 mg PO once Route: PO; db 11:28 Follow up: Response: No adverse reaction db 08:00 Drug: Famotidine IVP 20 mg IVP once; dilute with 10 mL 0.9% NaCl; give over 2 minutes db Route: IVP; Site: right wrist; 11:27 Follow up: Response: No adverse reaction db 08:00 Drug: vancoMYCIN IVPB 1 grams IVPB once over 2 hrs Route: IVPB; Infused Over: 2 hrs; db Site: right wrist; 09:24 Follow up: Response: No adverse reaction; IV Status: Completed infusion; IV Intake: db 250ml 08:06 Not Given (NOT GIVEN DUE TO MD AND CHF AND DIALYSIS ): ns 0.9% (30 ml/kg) 30 ml/kg IV db at bolus once; Sepsis Protocol; to be given as a bolus over 90 minutes 09:23 Drug: levofloxacin IVPB 500 mg 100 ml IVPB once over 60 mins Volume: 100 ml; Route: db IVPB; Infused Over: 60 mins; Site: right wrist; 10:30 Follow up: Response: No adverse reaction; IV Status: Completed infusion; IV Intake: db 100ml 10:04 Drug: Oseltamivir PO 75 mg PO once Route: PO; db 11:28 Follow up: Response: No adverse reaction db Medication: 08:16 VIS not applicable for this client. db Intake: 09:24 IV: 250ml; Total: 250ml. db 10:30 IV: 100ml; Total: 350ml. db Outcome: 09:13 Decision to Hospitalize by Provider. annie 10:58 Discharge ordered by . annie 11:25 Discharged to home ambulatory, with family, db 11:25 Condition: stable 11:25 Discharge instructions given to patient, Instructed on discharge instructions, follow up and referral plans. Prescriptions given X 1, 11:28 Patient left the ED. db Signatures: Dispatcher [employer] EDMS Mark Toribio MD MD cha Calcote, Vanessa RN RN vc1 Halima Ortiz RN RN Ken Weaver RN RN rg5
--- NOTE | 2024-10-17 09:13 | EDPHYS ---
Physician Documentation [facility] Name: Rasheed Dodson Age: 54 yrs Sex: Male : 1970 Arrival Date: 10/17/2024 Time: 06:47 Bed 15 Private MD: ED Physician Mark Toribio HPI: 10/17 07:17 This 54 yrs old Male presents to ER via Unassigned with complaints of fever , annie cough, dyspnea. 07:17 The patient has shortness of breath with light activity. Onset: The symptoms/episode annie began/occurred 2 day(s) ago. Duration: The symptoms are continuous, and are unchanged since they started. The patient's shortness of breath has no apparent modifying factors. The patient or guardian reports cough, difficulty breathing, flu symptoms, arthralgias, myalgias. Modifying factors: The symptoms are alleviated by remaining still. Associated signs and symptoms: Pertinent positives: non-productive cough, dizziness, fever. Severity of symptoms: At their worst the symptoms were moderate in the emergency department the symptoms are unchanged. Historical: - Allergies: 06:55 PENICILLINS; rg5 06:55 CEPHALOSPORINS; rg5 - PMHx: 06:55 hemodialysis- MWF; rg5 - Immunization history:: Adult Immunizations not up to date. - Infectious Disease History:: Denies. - Family history:: not pertinent. - Social history:: Smoking status: Patient reports the use of cigarette tobacco products, denies chronic smoking, but will smoke occasionally. ROS: 07:17 Eyes: Negative for injury, pain, redness, and discharge, ENT: Negative for injury, annie pain, and discharge, Neck: Negative for injury, pain, and swelling, Abdomen/GI: Negative for abdominal pain, nausea, vomiting, diarrhea, and constipation, Back: Negative for injury and pain, : Negative for injury, bleeding, discharge, and swelling, MS/Extremity: Negative for injury and deformity, Skin: Negative for injury, rash, and discoloration, Neuro: Negative for headache, weakness, numbness, tingling, and seizure, Psych: Negative for depression, anxiety, suicide ideation, homicidal ideation, and hallucinations, Allergy/Immunology: Negative for hives, rash, and allergies, Endocrine: Negative for neck swelling, polydipsia, polyuria, polyphagia, and marked weight changes, Hematologic/Lymphatic: Negative for swollen nodes, abnormal bleeding, and unusual bruising, 07:17 Constitutional: Positive for body aches, chills, fatigue, fever, malaise, 07:17 Cardiovascular: Positive for palpitations, 07:17 Respiratory: Positive for cough, shortness of breath, at rest. Exam: 07:17 Constitutional: This is a well developed, well nourished patient who is awake, alert, annie and in no acute distress. Head/Face: Normocephalic, atraumatic. Eyes: Pupils equal round and reactive to light, extra-ocular motions intact. Lids and lashes normal. Conjunctiva and sclera are non-icteric and not injected. Cornea within normal limits. Periorbital areas with no swelling, redness, or edema. ENT: Nares patent. No nasal discharge, no septal abnormalities noted. Tympanic membranes are normal and external auditory canals are clear. Oropharynx with no redness, swelling, or masses, exudates, or evidence of obstruction, uvula midline. Mucous membranes moist. Neck: Trachea midline, no thyromegaly or masses palpated, and no cervical lymphadenopathy. Supple, full range of motion without nuchal rigidity, or vertebral point tenderness. No Meningismus. Chest/axilla: Normal chest wall appearance and motion. Nontender with no deformity. No lesions are appreciated. Abdomen/GI: Soft, non-tender, with normal bowel sounds. No distension or tympany. No guarding or rebound. No evidence of tenderness throughout. Back: No spinal tenderness. No costovertebral tenderness. Full range of motion. Male : Normal genitalia with no discharge or lesions. Skin: Warm, dry with normal turgor. Normal color with no rashes, no lesions, and no evidence of cellulitis. MS/ Extremity: Pulses equal, no cyanosis. Neurovascular intact. Full, normal range of motion., bilateral aka Neuro: Awake and alert, GCS 15, oriented to person, place, time, and situation. Cranial nerves II-XII grossly intact. Motor strength 5/5 in all extremities. Sensory grossly intact. Cerebellar exam normal. Normal gait. Psych: Awake, alert, with orientation to person, place and time. Behavior, mood, and affect are within normal limits. 07:17 Cardiovascular: Rate: tachycardic, actual rate is 120 bpm, Rhythm: regular, Pulses: Pulses are 4+ in bilateral radial, brachial, femoral, popliteal, posterior tibial and and dorsalis pedis arteries.. Heart sounds: normal, Edema: is not appreciated, JVD: is not appreciated, 07:17 ECG was reviewed by the Attending Physician. Vital Signs: 07:48 BP 115 / 84; Pulse 79; Resp 18; Pulse Ox 100% on R/A; Weight 107 kg; db 08:07 Temp 102; db 10:07 BP 118 / 63; Pulse 72; Resp 20; Temp 99; Pulse Ox 95% on 2 lpm NC; db 11:00 BP 129 / 66; Pulse 66; Resp 20; Pulse Ox 96% on R/A; db MDM: 07:00 Medical Screening Exam initiated annie 07:21 Differential diagnosis: asthma, Bronchitis CHF exacerbation, Chronic Obstructive annie Pulmonary Disease obstructed airway, tracheal injury, bronchitis, flu, URI, Myocardial Infarction pneumonia. Antibiotic administration: Levaquin given. Differential Diagnosis: Obstructed Airway Bronchitis Influenza Upper Respiratory Infection Sinusitis Pharyngitis Otitis Media Asthma Exacerbation Viral Syndrome Pneumonia Tracheal Injury. Immunization status: Influenza vaccine: within last 5 years. Data reviewed: vital signs, nurses notes, lab test result(s), EKG, radiologic studies, plain films. Consideration of Admission/Observation Patient was admitted/placed on observation. Escalation of care including admission/observation considered. Independent interpretation of the following test(s) in the Emergency Department EKG: See my EKG interpretation above. Test considered but Not performed: Ultrasound no abd usg. Historians other than the Patient: EMS: ems well informed. Care significantly affected by the following chronic conditions: esrd on hd. 09:34 Counseling: I had a detailed discussion with the patient and/or guardian regarding the [facility] historical points, exam findings, and any diagnostic results supporting the discharge/admit diagnosis, lab results, radiology results, the need for further work-up and treatment in the hospital. 10/17 07:10 Order name: CBC with Diff; Complete Time: : [facility] 10/17 07:10 Order name: LFT's; Complete Time: : annie 10/17 07:10 Order name: Magnesium; Complete Time: : annie 10/17 07:10 Order name: NT PRO-BNP; Complete Time: : annie 10/17 07:10 Order name: PT-INR; Complete Time: 09:06 10/17 07:10 Order name: Troponin HS; Complete Time: 09:06 10/17 07:10 Order name: Blood Culture Adult (2) 10/17 07:10 Order name: CMP; Complete Time: 09:06 [facility] 10/17 07:10 Order name: Lactate w/ 2H reflex if indic.; Complete Time: 09:06 annie 10/17 07:10 Order name: Ptt, Activated; Complete Time: 09:06 annie 10/17 07:12 Order name: COVID-19 Ag + Flu A+B Ag; Complete Time: 09:06 10/17 07:10 Order name: XRAY Chest (1 view); Complete Time: 09:06 10/17 07:10 Order name: Cardiac monitoring; Complete Time: 09:49 annie 10/17 07:10 Order name: EKG - Nurse/Tech; Complete Time: 09:49 [facility] 10/17 07:10 Order name: IV Saline Lock; Complete Time: 10:22 [facility] 10/17 07:10 Order name: Labs collected and sent; Complete Time: 10:22 [facility] 10/17 07:10 Order name: O2 Per Protocol; Complete Time: 10:22 10/17 07:10 Order name: O2 Sat Monitoring; Complete Time: 10:22 [facility] 10/17 07:10 Order name: Accucheck; Complete Time: 08:17 [facility] 10/17 07:10 Order name: IV Saline Lock - Large Bore; Complete Time: 08:06 10/17 07:10 Order name: VS Recheck; Complete Time: 08:17 [facility] 10/17 07:10 Order name: Vital Signs; Complete Time: 08:06 [facility] EC:17 Rate is 85 beats/min. Rhythm is regular. QRS Kell is Normal. CO interval is normal. QRS annie interval is normal. QT interval is normal. No Q waves. T waves are Normal. No ST changes noted. Clinical impression: NSR w/ Non-specific ST/T Changes and No evidence of ischemia. Interpreted by me. Reviewed by me. Administered Medications: 08:00 Drug: Acetaminophen PO 1000 mg PO once Route: PO; db 11:28 Follow up: Response: No adverse reaction db 08:00 Drug: Famotidine IVP 20 mg IVP once; dilute with 10 mL 0.9% NaCl; give over 2 minutes db Route: IVP; Site: right wrist; 11:27 Follow up: Response: No adverse reaction db 08:00 Drug: vancoMYCIN IVPB 1 grams IVPB once over 2 hrs Route: IVPB; Infused Over: 2 hrs; db Site: right wrist; 09:24 Follow up: Response: No adverse reaction; IV Status: Completed infusion; IV Intake: db 250ml 08:06 Not Given (NOT GIVEN DUE TO MD AND CHF AND DIALYSIS ): ns 0.9% (30 ml/kg) 30 ml/kg IV db at bolus once; Sepsis Protocol; to be given as a bolus over 90 minutes 09:23 Drug: levofloxacin IVPB 500 mg 100 ml IVPB once over 60 mins Volume: 100 ml; Route: db IVPB; Infused Over: 60 mins; Site: right wrist; 10:30 Follow up: Response: No adverse reaction; IV Status: Completed infusion; IV Intake: db 100ml 10:04 Drug: Oseltamivir PO 75 mg PO once Route: PO; db 11:28 Follow up: Response: No adverse reaction db Disposition Summary: 10/17/24 10:58 Discharge Ordered Notes: Location: Home(10/17/24 10:58) annie Problem: new(10/17/24 10:58) annie Symptoms: have improved(10/17/24 10:58) annie Condition: Stable(10/17/24 10:58) annie Diagnosis - Fever, unspecified(10/17/24 10:58) annie - Pleural effusion, not elsewhere classified annie - Dependence on renal dialysis(10/17/24 10:58) annie - Influenza due to identified novel influenza A virus with other manifestations annie - Hyperkalemia annie Followup: annie - With: Dionicio Chavez DO - When: Upon discharge from the Emergency Department - Reason: Recheck today's complaints, Continuance of care, Re-evaluation by your physician Discharge Instructions: - Discharge Summary Sheet annie - Heart Failure, Diagnosis annie - Hyperkalemia anine - Hyperkalemia, [id number] annie - Influenza, Adult annie - Pleural Effusion annie - End-Stage Kidney Disease annie - Influenza, Adult, [id number] annie - Fever, Adult, [id number] annie Forms: - Medication Reconciliation Form annie - Antibiotic Education annie - Prescription Opioid Use annie - Patient Portal Instructions annie - Leadership Thank You Letter annie Prescriptions: - levofloxacin 250 mg Oral tablet - take 1 tablet ORAL route every 2 days q 48 hours; 5 tablet; Refills: 0, Product annie Selection Permitted Signatures: Dispatcher [employer] EDMS Mark Toribio MD MD cha Benton, Danielle, RN RN db Ken Morocho RN RN rg5 Corrections: (The following items were deleted from the chart) 07:11 07:11 BASIC METABOLIC PANEL+C.LAB.BRZ ordered. EDMS EDMS 07:11 07:11 CBC+H.LAB.BRZ ordered. EDMS EDMS 07:11 07:11 HEPATIC FUNCTION+C.LAB.BRZ ordered. EDMS EDMS 07:11 07:11 MAGNESIUM+C.LAB.BRZ ordered. EDMS EDMS 07:11 07:11 PROBNP+C.LAB.BRZ ordered. EDMS EDMS 07:11 07:11 PROTIME (+INR)+COAG.LAB.BRZ ordered. EDMS EDMS 07:11 07:11 Troponin High Sensitivity+C.LAB.BRZ ordered. EDMS EDMS 07:11 07:11 BLOOD CULTURE*+BA.LAB.BRZ ordered. EDMS EDMS 07:11 07:11 COMPREHENSIVE METABOLIC PANEL+C.LAB.BRZ ordered. EDMS EDMS 07:11 07:11 LACTATE+C.LAB.BRZ ordered. EDMS EDMS 07:11 07:11 PTT, ACTIVATED+COAG.LAB.BRZ ordered. EDMS EDMS 07:11 07:11 Urinalysis+U.LAB.BRZ ordered. EDMS EDMS 07:11 07:11 Chest Single View+RAD.RAD.BRZ ordered. EDMN EDMS :55 09:13 Inpatient Admission annie annie 09:13 Jeevan Fountain annie annie 09:13 Telemetry/MedSurg (Inpatient) annie annie 09:13 Fair annie annie 09:13 new annie annie 09:13 have improved annie annie 09:13 Standard annie annie 09:13 annie annie 09:13 Dependence on renal dialysis annie annie 09:13 Combined systolic (congestive) and diastolic (congestive) heart failure annie annie 09:13 Fever, unspecified annie annie 09:13 Dyspnea [facility] 09:13 Influenza due to identified novel influenza A virus with other respiratory [facility] manifestations [facility]
[2024-10-17] MEDS ORDERED: OSELTAMIVIR 75 MG CAP PO ONE (09:55)
--- NOTE | 2024-10-17 10:34 | P.CNS ---
Date of Consult: 10/17/24 Reason for Consult: ESRD Requesting Physician: Mark Toribio Chief Complaint: Chest Pain History of Present Illness: [id number] 07:17 This 54 yrs old Male presents to ER via Unassigned with complaints of fever , annie cough, dyspnea. 07:17 The patient has shortness of breath with light activity. Onset: The symptoms/episode annie began/occurred 2 day(s) ago. Duration: The symptoms are continuous, and are unchanged since they started. The patient's shortness of breath has no apparent modifying factors. The patient or guardian reports cough, difficulty breathing, flu sympto ms, arthralgias, myalgias. Modifying factors: The symptoms are alleviated by remaining still. Associated signs and symptoms: Pertinent positives: non-productive cough, dizziness, fever. Severity of symptoms: At their worst the symptoms were moderate in the emergency department the symptoms are unchanged. Allergies cephalexin Allergy (Unknown, Unverified 10/17/24 08:01) Hives/Rash Penicillins Allergy (Unknown, Unverified 10/17/24 08:01) Hives/Rash Home medications list reviewed: Yes - Past Medical/Surgical History Diabetic: Yes -: ESRD (Dr. Chavez/ [facility]) -: HTN -: DM II -: Diastolic CHF -: Anemia - Social History Smoking Status: Former smoker Review of Systems 10-point ROS is otherwise unremarkable Respiratory: SOB with Excertion Cardiovascular: Chest Pain, Edema Physical Examination General: In no apparent distress, Oriented x3, Cooperative HEENT: Atraumatic Neck: Supple Respiratory: Diminished Cardiovascular: Regular rate/rhythm Gastrointestinal: Soft and benign, Non-distended Musculoskeletal: No clubbing, No contractures Integumentary: No rashes, No cyanosis Neurological: Normal speech Laboratory Data (last 24 hrs) 10/17/24 10/17/24 10/17/24 07:43 07:43 07:43 WBC 5.40 Hgb 9.4 L Hct 29.4 L Plt Count 210 PT 15.3 H INR 1.36 APTT 38.7 H Sodium 133 L Potassium 5.2 H BUN 46 H Creatinine 7.57 H Glucose 130 H Magnesium 2.1 Total Bilirubin 0.4 AST < 10 L ALT < 14 L Alkaline Phosphatase 96 Imagings Data: [id number] EXAMINATION: ONE VIEW CHEST XR CLINICAL INDICATION: Male, 54 years old.,Cough;Dyspnea TECHNIQUE: Frontal chest projection is submitted. Examination is limited by patient positioning and technique. COMPARISON: No prior exam. FINDINGS: Bibasilar and perihilar patchy airspace opacities with layering small to moderate effusions, with mild central interstitial prominence. No pneumothorax. Heart is mildly enlarged. Mediastinal contours are unremarkable. IMPRESSION: Findings suggesting pulmonary edema with layering effusions as above. Conclusions/Impression: ESRD on HD -Arrange for Acute HD Hyponatremia Hyperkalemia -Arrange for Acute HD -Lokelma X1 HTN with CKD/ CHF -Restart Nifedipine ER Diastolic CHF, A/C -Low sodium diet -UF with HD DM II with CKD & Polyneuropathy -Recommend RISS Anemia in CKD -Retacrit qHD CKD MBD Secondary HyperParathyroidism -Restart Renvela Case reviewed with Dr. Toribio Thank you kindly for the consultation
[2024-10-17] MEDS ORDERED: SODIUM ZIRCONIUM CYCLOSILICATE 10 GM/PKT PO ONE (10:45)
--- NOTE | 2024-10-17 11:02 | EKG ---
Test Date: 2024-10-17 Test Time: 07:11:45 Credit Review Analyst: GILMA MEASUREMENT RESULTS: Intervals: Rate: 85 MI: 202 QRSD: 90 QT: 376 QTc: 447 Riva: P: 50 MI: 202 QRS: 32 T: 74 INTERPRETIVE STATEMENTS: Normal sinus rhythm Normal ECG No previous ECG available for comparison Electronically Signed On 10-17-24 11:01:45 RIBBON TIER by Ajay Campo
[2024-10-17 11:34] VITALS: TEMP 99
[2024-10-17 11:36] VITALS: BP 129/66; O2SAT 96
== END 2024-10-17 11:28 | disposition home or self-care (01) ==
LOC: ER 06:47
DX: J10.89 Influenza due to other identified influenza virus with other manifestations (principal); J90 Pleural effusion, not elsewhere classified; E87.5 Hyperkalemia; Z99.2 Dependence on renal dialysis; F17.210 Nicotine dependence, cigarettes, uncomplicated; Z11.52 Encounter for screening for COVID-19
CPT/HCPCS: 93005; 87040 ×2; 85025; 36415; 83735; 85610; 80076; 83605; 85730; 84484; 80053; 83880; 71045; 87428; J3370; J7050

== ENCOUNTER 2024-10-24 04:43 | Inpatient (IN) | payer OTHER ==
--- OUTSIDE RECORDS SUMMARY | 2024-10-24 04:46 | XMS REPORT | Continuity of Care Document ---
Author Name Unknown Address [address] [place] [address] [facility] Address [address] [place] [address] Care Team Providers Care Licensing Engineer Name Role Phone Pcp, Patient Does Not Have A Primary Care Physic marah WESLEY SIMS Attending Clinician Unaraleigh Melendez RN, Lazaro Regan Attending Clinician Unavail darnell Toro MD, Sandra Attending Clinician [phone] Chris Levine MD Attending Clinician [phone] CHRIS LEVINE Attending Clinician Unavailable Paulina Silva Attending Clinician Unavailable Chris Levine MD Admitting Clinician [phone] Physician, No Primary or Family Admitting Clinic marah Unavailable Payers Payer Name Policy Type Policy Number Effective Date Expirati on Date Source Problems Condition Name Condition Details Condition Category Status Onset Date Resolution Date Last Treatment Date Treating Clinician Comments Source AV fistula occlusion, initial encounter AV fistula occlusion, initial encounter Disease Active 11-04 00:00: 00 [facility] ESRD on dialysis ESRD on dialysis Disease Active 11-04 00:00: 00 [facility] Allergies, Adverse Reactions, Alerts Allergy Name Allergy Type Status Severity Reaction(s) Onset Date Inactive Date Treating Clinician Comments Source Latex Propensi ty to adverse reaction s Active Unknown - See comments 11-04 00:00: 00 Peels skin [facility] Penicill in Propensi ty to adverse reaction s Active Hives 11-04 00:00: 00 [facility] PENICILL IN DRUG INGREDI Active Hives 11-04 00:00: 00 [facility] LATEX DRUG INGREDI Active Unknown-Cmnt 11-04 00:00: 00 [facility] penicill in G DA Active MO RASH-HIVES 2022-08 006 00:00: 00 [facility] NO KNOWN ALLERGIE S Drug Class Active [facility] Social History Social Habit Start Date Stop Date Quantity Comments Source [facility] function 2023-11-07 00:00:00 2023-11-07 00:00:00 [facility] Sex Assigned At 1970 00:00:00 1970 00:00:00 [facility] Smoking Status Start Date Stop Date Source Tobacco smoking consumption unknown [facility] Medications Ordered Medication Name Filled Medication Name Start Date Stop Date Current Medication? Ordering Clinician Indication Dosage Frequency Signature (SIG) Comments Components Source levothyroxi ne 25 mcg tablet 11-08 00:00: 00 02-07 04:59 :00 No [id number] 12.5ug Take 0.5 tablets by mouth every morning for 90 days. [facility] lidocaine 1% (PF) (XYLOCAINE) injection 0.3 mL 11-07 16:45: 00 11-07 15:34 :00 No [id number] .3mL 0.3 mL, Infiltrati on, DIALYSIS ONCE - [facility], 1 dose, On Tue11/08/23 at 1145, Routine [facility] aspirin 81 mg chewable tablet 11-07 00:00: 00 Yes [id number] 81mg Take 1 tablet by mouth in the morning. [facility] acetaminoph en 325 mg tablet 11-07 00:00: 00 11-08 04:59 :00 No [id number] 650mg Take 2 tablets by mouth every 6 (six) hours as needed for Pain (scale 1-3). [facility] atorvastati n 10 mg tablet 11-07 00:00: 00 02-06 04:59 :00 No [id number] 10mg Take 1 tablet by mouth at bedtime for 90 days. [facility] clopidogreL 75 mg tablet 11-07 00:00: 00 02-06 04:59 :00 No [id number] 75mg Take 1 tablet by mouth in the morning for 90 days. [facility] HYDROcodone -acetaminop hen 5-325 mg tablet 11-07 00:00: 00 11-15 04:59 :00 No [id number] 1{tbl} Take 1 tablet by mouth every 6 (six) hours as needed for Pain (scale 4-6) for up to 7 days. Indication s: acute pain [facility] clopidogreL (PLAVIX) 75 mg tablet 75 mg 11-06 14:00: 00 Yes 75mg 75 mg, Oral, DAILY, First dose on Tue11/07/23 at 0900, Until Discontinu ed, Routine [facility] hydralAZINE (APRESOLINE ) injection 10 mg 11-06 00:08: 09 Yes 10mg 10 mg, Slow IV Push, Q4HPRN, Starting on Tue11/06/23 at 1908, Until Discontinu ed, Routine, DBP=>100; SBP=>180, and HR < 70 [facility] labetaloL (NORMODYNE) injection 10 mg 11-06 00:08: 09 Yes 10mg 10 mg, Slow IV Push, Q4HPRN, Starting on Tue11/06/23 at 1908, Until Discontinu ed, Routine, SBP > 180 and HR > 70 [facility] clopidogreL (PLAVIX) 300 mg tablet 300 mg 11-05 23:45: 00 11-06 03:07 :00 No 300mg 300 mg, Oral, ONCE, 1 dose, On Tue11/06/23 at 1845, BRIANA [facility] aspirin chewable tablet 81 mg 11-05 14:00: 00 Yes 81mg 81 mg, Oral, DAILY, First dose on 11/06/23 at 0900, Until Discontinu ed, Routine [facility] pantoprazol e (PROTONIX) EC tablet 40 mg 11-05 14:00: 00 Yes 40mg 40 mg, Oral, DAILY, First dose on Tue11/06/23 at 0900, Until Discontinu ed, Routine
Indicatio n for use: Coagulopat hy - Prothrombi n Time > 1.5 times the control values [facility] levothyroxi ne (SYNTHROID) tablet 12.5 mcg 11-05 11:00: 00 Yes 12.5ug 12.5 mcg, Oral, QAM-0600, First dose on Brooks 11/06/23 at 0600, Until Discontinu ed, Routine [facility] heparin (porcine) injection 5,000 Units 11-05 03:00: 00 Yes 5000U 5,000 Units, Subcutaneo us, Q8H, First dose on 11/05/23 at 2200, Until Discontinu ed, Routine [facility] 4 % patch 1 Patch 11-05 02:30: 00 11-05 14:13 :00 No 1{patch } 1 Patch, Topical, Administer over 12 Hours, ONCE, 1 dose, On 11/05/23 at 2130, Routine [facility] atorvastati n (LIPITOR) tablet 10 mg 11-05 02:00: 00 Yes 10mg 10 mg, Oral, QHS, First dose on 11/05/23 at 2100, Until Discontinu ed, Routine [facility] FENTanyl PF (SUBLIMAZE (PF)) injection 25 mcg 11-05 01:32: 17 Yes 25ug 25 mcg, Slow IV Push, Q2HPRN, Starting on 11/05/23 at 2031, Until Discontinu ed, Routine, Pain (scale 7-10) [facility] HYDROcodone -acetaminop hen (NORCO 5) 5-325 mg tablet 1 tablet 11-05 01:31: 15 Yes 1{tbl} 1 tablet, Oral, Q6HPRN, Starting on 11/05/23 at 203, Until Discontinu ed, Routine, Pain (scale 4-6) [facility] hydralAZINE (APRESOLINE ) injection 10 mg 11-04 19:32: 57 11-06 00:08 :37 No 10mg 10 mg, Slow IV Push, Q4HPRN, Starting on 11/05/23 at 1432, Until 11/06/23 at 1908, Routine, DBP=>100; SBP=>180 [facility] acetaminoph en (TYLENOL) tablet 650 mg 11-04 19:32: 48 Yes 650mg 650 mg, Oral, Q6HPRN, Starting on 11/05/23 at 1432, Until Discontinu ed, Routine, Pain (scale 1-3) [facility] ondansetron (ZOFRAN (PF)) injection 4 mg 11-04 19:30: 50 Yes 4mg 4 mg, Slow IV Push, Q6HPRN, Starting on 11/05/23 at 1430, Until Discontinu ed, Routine, Nausea and Vomiting (N/V) [facility] Vital Signs Vital Name Observation Time Observation Value Comments S ource Systolic blood pressure 2023-11-08 19:03:00 177 mm[Hg] [facility] Diastolic blood pressure 2023-11-08 19:03:00 85 mm[Hg] [facility] Heart rate 2023-11-08 19:03:00 91 /min [facility] Body temperature 2023-11-08 18:42:00 36 Jennifer [facility] Respiratory rate 2023-11-08 18:42:00 18 /min [facility] Oxygen saturation in Arterial blood by Pulse oximetry 2023-11-08 18:42:00 92 /min [facility] Body weight 2023-11-08 17:57:00 116.6 kg [facility] Procedures Procedure Date / Time Performed Performing Clinician Source PHOSPHORUS 2023-11-08 10:12:00 Dylan Cisneros [facility] MAGNESIUM 2023-11-08 10:12:00 Dylan Cisneros [facility] BASIC METABOLIC PANEL (NA, K, CL, CO2, GLUCOSE, BUN, CREATININE, CA) 2023-11-08 10:12:00 Samuel Cisneros [facility] CBC WITHOUT DIFF 2023-11-08 10:12:00 Samuel Cisneros [facility] HEPATITIS B SURFACE ANTIBODY 2023-11-08 10:12:00 Lexie Flowers [facility] HEPATITIS B SURFACE ANTIGEN 2023-11-08 10:12:00 Lexie Flowers [facility] PHOSPHORUS 2023-11-07 09:26:00 Dylan Cisneros [facility] MAGNESIUM 2023-11-07 09:26:00 Dylan Cisneros [facility] BASIC METABOLIC PANEL (NA, K, CL, CO2, GLUCOSE, BUN, CREATININE, CA) 2023-11-07 09:26:00 Samuel Cisneros [facility] CBC WITHOUT DIFF 2023-11-07 09:26:00 Samuel Cisneros [facility] FL TIME OR (NON-REPORTABLE) 2023-11-06 22:55:00 Mora Russell [facility] ARTERIOVENOUS FISTULA THROMBECTOMY 2023-11-06 20:34:00 Chris Levine [facility] ENDOVASCULAR UPPER EXTREMITY ANGIOPLASTY 2023-11-06 20:34:00 Chris Levine [facility] VASCULAR STENTING 2023-11-06 20:34:00 Chris Levine [facility] BASIC METABOLIC PANEL (NA, K, CL, CO2, GLUCOSE, BUN, CREATININE, CA) 2023-11-06 11:19:00 Katharina Russell [facility] CBC WITH DIFF 2023-11-06 11:19:00 Katharina Russell [facility] COMP. METABOLIC PANEL (81783) 2023-11-05 18:46:00 Sandra Toro [facility] CBC WITH DIFF 2023-11-05 18:46:00 Sandra Toro [facility] PROTHROMBIN TIME / INR 2023-11-05 18:46:00 Sandra Toro [facility] ACTIVATED PARTIAL THRMPLAS HILDA 2023-11-05 18:46:00 Sandra Toro [facility] CONSENT/REFUSAL FOR DIAGNOSIS AND TREATMENT 2023-11-05 17:44:50 Doctor Unassigned, [place] [facility] Encounters Start Date/Time End Date/Time Encounter Type Admission Type Attending [facility] Care Facility Care Department Encounter ID Source 2024-02-10 16:50:00 2024-02-10 23:05:00 Emergency E WESLEY SIMS [facility] [id number] [facility] 2023-11-09 00:00:00 2023-11-09 00:00:00 Transition of Care Lazaro Melendez [facility] [id number] [facility] 2023-11-05 13:14:00 2023-11-08 14:56:00 Hospital Encounter Sandra Toro [facility] [id number] [facility] 2023-11-05 13:14:00 2023-11-08 14:56:00 Inpatient X CHRIS LEVINE [facility] [id number] [facility] 2023-05-20 17:45:00 2023-05-20 19:20:00 Emergency EM Paulina Silva [facility] [id number] [facility] Results Test Description Test Time Test Comments Results Resul t Comments Source FL TIME OR (NON-REPORTABLE) 2023-11-07 05:50:12 These images do not require a Radiology diagnostic report[facility] [id number] 19:07:12* Test Item Value Reference Range Interpretation Comme nts APTT Patient (test code = 3173-2) 38 26-36 H Lab Interpretation (test cod e = 22492-7) Abnormal [facility] / [id number] 19:07:12* Test Item Value Reference Range Interpretation Comme nts PROTIME PATIENT (test code = 5964-2) 12.0 10.1-12.6 INR (test code = 6301-6) 1.1 Normal INR <1.1; Warfarin Therapeutic range 2.0 to 3.0 or 2.5 to 3.5, depending upon the indications. Lab Interpretation (test code = 35260-7) Normal [facility] WITH [id number] 19:00:14* Test Item Value Reference Range Interpretation [...] 32.6 g/dL 31.2-35.0 RDW-SD (test code = 62875-2) 47.9 fL 38.5-51.6 RDW-CV (test code = 788-0) 13.8 % 12.1-15.4 PLT (test code = 777-3) 184 150-328 MPV (test code = 04850-3) 9.4 fL 9.8-13.0 L NRBC/100 WBC (test code = 3366806066) 0.0 0.0-10.0 NRBC x10^3 (test code = 7232496429) See_Comment [Automated messa ge] The system which generated this result transmitted reference range: 10*3/?L. The reference range was not used to interpret this result as normal/abnormal. GRAN MAT (NEUT) % (test code = 770-8) 79.6 % IMM GRAN % (test code = 0699670993) 0.50 % LYMPH % (test code = 736-9) 10.0 % MONO % (test code = 5905-5) 7.2 % EOS % (test code = 713-8) 2.0 % BASO % (test code = 706-2) 0.7 % GRAN MAT x10^3(ANC) (test code = 3498149900) 5.88 10*3/uL 1.99-6.95 IMM GRAN x10^3 (test code = 0584885318) 0.04 10*3/uL 0.00-0.06 LYMPH x10^3 (test code = 731-0) 0.74 10*3/uL 1.09-3.23 L MONO x10^3 (test code = 742-7) 0.53 10*3/uL 0.36-1.02 EOS x10^3 (test code = 711-2) 0.15 10*3/uL 0.06-0.53 BASO x10^3 (test code = 704-7) 0.05 10*3/uL 0.01-0.09 Lab Interpretation (test code = 53364-7) Abnormal [facility] [id number] 19:00:00* Test Item Value Reference Range Interpretation Comme nts LACTIC ACID (test code = LACT) 1.4 MMOL/L 0.5-2.2 N BASIC METABOLIC [id number] 18:58:00* Test Item Value Reference Range Interpretation [...] CA) 8.5 MG/DL 8.7-10.5 L HEPATIC FUNCTION [id number] 18:58:00* Test Item Value Reference Range Interpretation [...] BILIND) 0.2 MG/DL 0.0-0.7 N TROP-I HIGH [id number] 18:58:00* Test Item Value Reference Range Interpretation [...] troponin from other clinical conditions, the Fourth Enterprise Definition of Myocardial Infarction stresses clinical assessment and demonstration of a rise and/or fall in serial troponin results above the upper reference limit.Results of this assay method may be falsely depressed orelevated if patient is taking high doses of Biotin. CBC W/AUTO [id number] 18:44:00* Test Item Value Reference Range Interpretation [...] is ESRD, had LUE AVG placed in [place] 5 years ago. Has been working fine [...] of the decision making. Chris Levine MD [facility] - Health History and Physical [...] of the decision making. Chris Levine MD [facility] - Health Notes Date/Time Note Provider Source 2023-11-09 15:48:12 TRANSITIONAL CARE MANAGEMENT ASSESSMENT 11/09/2023 Maurizio Garcia [id number] Maurizio Garcia is a 53 year old /White male was admitted on 11/05/[address] He was discharged on 11/08/23 with discharge disposition of HR- Routine Discharge. Admitting Physician: Chris Levine Discharge Diagnosis: Lt AVG malfunction No linked episodes TCM Sqk-ytia-bu-face outreach documentation: CM made follow up call to patient post-discharge. No answer and call went to voicemail. CM left a discreet message with purpose of call and CM's call back information. Two attempts made to reach patient. Discharge Assessment Chart Assessed: 11/09/23 TCM Outreach Completed: 11/09/23 Future Appointments: [facility] 2023-11-09 12:06:29 CM made follow up call to patient post-discharge. No answer and call went to voicemail. CM left a discreet message with purpose of call and CM's call back information. [facility] 2023-11-08 14:36:17 Problem: Discharge Planning [...] Knowledge of procedure Outcome: Progressing as expected [facility] Vita Pal RN [facility] 2023-11-08 12:41:35 HEMODIALYSIS NURSING NOTE Number Hours: [...] See hemodialysis flowsheet for details of treatment. T Abby Davis RN [facility] 2023-11-08 10:22:34 Hemodialysis Plan of care reviewed [...] Progressing as expected Note: Hemodialysis tx T [facility] 2023-11-08 05:27:55 Problem: Discharge Planning Goal: Adequate [...] Outcome: Progressing as expected ILLO Gudino RN [facility] 2023-11-07 05:01:08 Problem: Discharge Planning Goal: Adequate [...] Absence of infection Outcome: Progressing as expected [facility] 2023-11-06 18:02:16 1635-SURGEON, DR. LEVINE, AND POOL SERVICER, DR. DAY NOTIFIED OF LATEX PRODUCT BEING USED (ESTHELA) IN SETTING OF LATEX ALLERGY. STATES WILL MONITOR PT FOR S/S. Jael Alcala RN [facility] 2023-11-06 16:28:00 FULL OPERATIVE NOTE Date of [...] balloon angioplasty using 8 x 60 mm [place] balloon - Left upper extremity arteriovenous graft to left axillary vein stent using 8 x 60 mm Innova stent - Left upper extremity arteriovenous graft balloon angioplasty using 6 x 60 mm [place] balloon Findings: - left brachio-axillary graft with [...] was treated with 8 x 60 mm [place] balloon. Fistulogram demonstrated recanalization of the axillary vein. The lesion was treated with 8 x 60 mm Innova stent. The completion looked satisfactory. Fistulogram of the venous limb demonstrated severe diffuse stenosis at the site of frequent access. This was treated with 6 x 60 mm [place] balloon with moderate response. Central venogram demonstrated [...] entire procedure. Chris Levine MD INGE-VASCULAR SURGERY [facility] 2023-11-05 14:46:02 Report called to receiving nurse 9C. Answered all questions. Ready to receive pt. Imani Rodriguez RN [facility] 2023-11-05 13:08:30 Maurizio Garcia is a 53 [...] and sending to a room for evaluation. [facility] 2023-11-05 12:38:00 [facility] Emergency Department Note Patient Name: [...] PROTHROMBIN TIME / INR COMP. METABOLIC PANEL (44988) Consult Vascular Surgery No orders of the defined types were placed in this encounter. ED COURSE ED Course as of 11/05/23 1931 Sat Nov 05, 2023 1432 Admitted to vascular surgery [LS] 1413 COMP. METABOLIC PANEL (72333)(!) Hyperglycemia elevated BUN and creatinine, likely unremarkable [...] [LS] Sandra Toro MD Diagnosis/Impression as of 11/05/23 193 AV fistula occlusion, initial encounter ESRD on [...] Portions of this note were completed using [employer] Software. Occasional phonetic or grammatical errors may escape proofreading. Electronically signed by: Sandra Toro M.D., [facility] Production Control Supervisor Clinical Professor of Emergency Medicine 11/05/2023 1:14 PM Sandra Toro MD 11/05/231930 [facility] 2023-05-20 18:46:00 [facility] EMERGENCY PROVIDER REPORT REPORT#:[id number] REPORT STATUS: Signed DATE:05/20/23 TIME: 1845 PATIENT: MAURIZIO GARCIA UNIT #: [id number] ROOM/BED: AGE: 53 SEX: M PCP PHYS: [...] (Auto) (24 - 44 %) 9.7 L [place] % (Auto) (0.0 - 4.0 %) 6.9 [...] sinus rhythm, no STEMI Date 05/20/23 Time 183 Interpreted by and reviewed by me, Independently [...] Documented: Result Date Time Pulse Ox 96 05/204 B/P 142/75 05/20 1814 B/P Mean 97.5 [...] RETURN TO ER IF WORSENING INFECTION Address: [address] [place] [address] [address] RPT #:[id number] END OF REPORT [facility] 2023-05-20 18:37:00 [id number] [place], [place] PATIENT NAME: MAURIZIO GARCIA ADMIT DATE: 05/20/23 ACCOUNT NO: [id number] ROOM NO: AGE: 53 REPORT TYPE: ELECTROCARDIOGRAM SEX: M : 74 ADMITTING PHYSICIAN: ATTENDING PHYSICIAN:Paulina Silva MD Order: [id number] Test Reason : CODE SEPSIS Test Date/Time [...] Abnormal ECG Confirmed by Paulina Silva MD ([id number]), web editor SHABBIR PEREZ ([id number]) on 06/28/2023 12:05:29 PM Referred By: Self Referred Confirmed by:Paulina Silva MD at 1205 PATIENT NAME: MAURIZIO GARCIA [facility]
[2024-10-24] MEDS ORDERED: ONDANSETRON 4 MG/2 ML VIAL ONE ×2 (05:20→09:08)
[2024-10-24] MEDS ORDERED: MORPHINE 4 MG/ML SYR ONE ×3 (05:21→09:08)
[2024-10-24 05:47] LABS: Absolute Eosinophils 0.1 K/uL (0-0.5); Absolute Lymphocytes (CBC) 0.7 K/uL (0.7-4.9); Absolute Monocytes 0.5 K/uL (0.1-1.3); Absolute Neutrophil 1.9 K/uL (1.8-8.0); Basophils % 0.8 % (0-1.3); Eosinophils % 3.8 % (0-4.4); Hematocrit 32.6 % (39.6-49.0); Hemoglobin 10.4 g/dL (13.6-17.9); Lymphocytes % 21.6 % (15.3-44.8); MCH 28.3 pg (27.0-35.0); MCHC 31.9 g/dL (32.0-36.0); MCV 88.6 fL (80-100); Monocytes % 14.1 % (3.3-12.3); Neutrophils % 59.7 % (41.7-73.7); Nucleated Red Blood Cells % 0.2 % (0-0); PT Prothrombin Time 13.6 SECONDS (10-13.0); Platelets 216 thou/uL (152-406); Protime INR 1.2; RBC Red Blood Cell Count 3.68 M/uL (4.33-5.43); Red Cell Distribution Width 18.5 % (12.1-15.2)
[2024-10-24 06:04] LABS: Influenza A Ag Negative; Influenza B Ag Negative; SARS-CoV-2 Antigen Rapid Res Negative (Negative)
[2024-10-24 06:08] LABS: Albumin 3.2 g/dL (3.4-5.0); Albumin/Globulin Ratio 0.6 (1.1-1.8); Anion Gap 13.7 mEq/L (5.0-15.0); Bilirubin Direct 0.3 mg/dL (0-0.2); Bilirubin Indirect, Calculated 0.3 mg/dL (0.2-0.8); Bilirubin Total 0.6 mg/dL (0.2-1.0); Magnesium 2.1 mg/dL (1.6-2.4); Potassium 3.7 mEq/L (3.5-5.1); Protein, Total 8.2 g/dL (6.4-8.2)
[2024-10-24 06:15] LABS: Troponin High Sensitivity 144.5 pg/mL (<58.9)
--- NOTE | 2024-10-24 06:17 | RAD REPORT ---
PROCEDURE: XR Chest, 1 View CLINICAL INDICATION: The patient is 54 years old and is Male; Chest pain. TECHNIQUE: Frontal view of the chest. COMPARISON: None. FINDINGS: LUNGS: Perihilar and basilar predominant streaky and hazy airspace opacities, favoring pulmonary ed kayla with bibasilar passive atelectasis. PLEURAL SPACE: Left larger than right pleural effusions. No appreciable pneumothorax. MEDIASTINUM: Enlarged cardiomediastinal silhouette. BONES/JOINTS: Multilevel spondylosis. VASCULATURE: Partially visualized left medial upper extremity vascular stent. IMPRESSION: Cardiomegaly with pulmonary edema and left larger than right pleural effusions. Electronically signed by: Osorio Clay MD 10/24/2024 06:09 AM CDT RP Due to temporary technical issues with the PACS/[employer] reporting system, reports are being nicolas d by the in-house radiologist without review as a courtesy to ensure prompt reporting the interpreting radiologist is fully responsible for the content of the report. Transcribed Date/Time: 10/24/2024 6:17 AM
[2024-10-24] MEDS ORDERED: methocarbamoL 750 MG TAB ONE (06:41)
[2024-10-24] MEDS ORDERED: CALCIUM GLUCONATE 1 GM IVPB 1 GM/50 ML BAG IV ONE (06:42)
--- NOTE | 2024-10-24 06:50 | ER ---
Nurse's Notes [facility] Name: Rasheed Dodson Age: 54 yrs Sex: Male : 1970 Arrival Date: 10/24/2024 Time: 04:43 Bed 8 Private MD: Diagnosis: Acute pulmonary edema;Generalized pain, influenza A, end-stage renal disease on hemodialysis, bilateral pleural effusions, acute volume overload with hypoxemia Presentation: 10/24 05:01 Chief complaint: Patient states: PT WAS DX WITH THE FLU LAST WEEK AND COMES IN TODAY br2 C/O BODYACHES ALL OVER. N/V/D. PT HASN'T ONLY HAD 1HR OF DIALYSIS ON TUESDAY. Coronavirus screen: Client denies travel out of the [place] in the last 14 days. Ebola Screen: Patient denies exposure to infectious person. Patient denies travel to an Ebola-affected area in the 21 days before illness onset. Initial Sepsis Screen: Does the patient meet any 2 criteria? No. Patient's initial sepsis screen is negative. Does the patient have a suspected source of infection? No. Patient's initial sepsis screen is negative. Risk Assessment: Do you want to hurt yourself or someone else? Patient reports no desire to harm self or others. Onset of symptoms was October 21, 2024. 05:01 Method Of Arrival: Wheelchair br2 05:01 Acuity: ROCK 3 br2 Triage Assessment: 05:05 General: Appears uncomfortable, obese, Behavior is calm, cooperative. Pain: Complains br2 of pain in head, neck, chest, abdomen, pelvis, right arm, right hand, left arm, left hand, right leg, right foot, left leg and left foot Pain currently is 10 out of 10 on a pain scale. Neuro: Abarca Agitation-Sedation Scale (RASS): 0 - Alert and Calm Level of Consciousness is awake, alert, obeys commands, Oriented to person, place, time, situation. Historical: - Allergies: 05:05 CEPHALOSPORINS; br2 05:05 PENICILLINS; br2 - PMHx: 05:05 hemodialysis- MWF; br2 - Immunization history:: Adult Immunizations not up to date. - Infectious Disease History:: Denies. - Social history:: Smoking status: Patient reports the use of cigarette tobacco products, denies chronic smoking, but will smoke occasionally. - Family history:: not pertinent. Screenin:15 [facility] ED Fall Risk Assessment (Adult) History of falling in the last 3 months, al5 including since admission No falls in past 3 months (0 pts) Confusion or Disorientation No (0 pts) Intoxicated or Sedated No (0 pts) Impaired Gait Yes (1 pt) Mobility Assist Device Used Yes (1 pt) Altered Elimination No (0 pt) Score/Fall Risk Level 0 - 2 = Low Risk Oriented to surroundings, Maintained a safe environment, Hourly rounding (assess needs \T\ fall precautionary measures) done. Abuse screen: Denies threats or abuse. Denies injuries from another. Nutritional screening: No deficits noted. Tuberculosis screening: No symptoms or risk factors identified. Assessment: 05:16 General: Appears in no apparent distress. uncomfortable, Behavior is calm, cooperative. al5 Pain: Complains of pain in generalized. Neuro: Level of Consciousness is awake, alert, obeys commands, Oriented to person, place, time, situation. Cardiovascular: Capillary refill < 3 seconds Patient's skin is warm and dry. Respiratory: Airway is patent Respiratory effort is even, unlabored, Respiratory pattern is regular, symmetrical. GI: No signs and/or symptoms were reported involving the gastrointestinal system. : patient is a dialysis patient. L upper arm graft. EENT: No signs and/or symptoms were reported regarding the EENT system. Derm: Skin is intact, is healthy with good turgor, Skin is pink, warm \T\ dry. normal. Musculoskeletal: L BKA Reports generalized pain. 06:04 Reassessment: Patient appears in no apparent distress at this time. No changes from al5 previously documented assessment. Patient and/or family updated on plan of care and expected duration. Pain level reassessed. Patient is alert, oriented x 3, equal unlabored respirations, skin warm/dry/pink. states morphine did not help with his pain. MD notified and aware. Vital Signs: 05:01 BP 155 / 67; Pulse 65; Resp 22; Temp 97.8(O); Pulse Ox 92% on R/A; Weight 109 kg; br2 Height 89 ft. 2 in. ; 06:05 BP 145 / 66; Pulse 64; Resp 17; Pulse Ox 98% on 2 lpm NC; dd2 06:39 BP 135 / 59; Pulse 64; Resp 17; Pulse Ox 96% on 2 lpm NC; dd2 05:01 Body Mass Index 0.15 (109.00 kg, 2717.8 cm) br2 Jasmin Coma Score: 07:10 Eye Response: spontaneous(4). Motor Response: obeys commands(6). Verbal Response: sp4 oriented(5). Total: 15. ED Course: 04:45 Patient arrived in ED. [email or web address] 04:51 Uzair Jaramillo MD is Attending Physician. sp4 05:05 Triage completed. br2 05:15 Arm band placed on right wrist. Patient placed in the treatment room, in view of staff al5 members, on oxygen, on pulse oximetry. 05:16 Patient has correct armband on for positive identification. Bed in low position. Call al5 light in reach. Side rails up X2. Provided Education on: plan of care. 05:16 No provider procedures requiring assistance completed. Inserted saline lock: 22 gauge al5 in right forearm, using aseptic technique. Blood collected. Flushed with 10 mL NS. 05:18 Cait Johansen, RN is Primary Nurse. al5 05:25 XRAY Chest (1 view) In Process Unspecified. EDMS 06:49 Maura Smith MD is Hospitalizing Provider. sp4 10:33 Primary Nurse role handed off by Cait Johansen, DAVIDA ld1 10:33 Jen Webster, DAVIDA is Primary Nurse. ld1 Administered Medications: 05:27 Drug: morphine IVP or IV 4 mg IVP once over 4 mins Route: IVP; Infused Over: 4 mins; al5 Site: right forearm; 06:04 Follow up: Response: No adverse reaction; No change in condition; Pain is unchanged, al5 physician notified 05:27 Drug: Ondansetron IVP 4 mg IVP once; over 2 minutes Route: IVP; Site: right forearm; al5 06:04 Follow up: Response: No adverse reaction al5 06:50 Drug: Calcium Gluconate IVPB 1 grams IVPB once over 60 mins; (mix in NS 100 mL) Route: al5 IVPB; Infused Over: 60 mins; Site: right forearm; 06:50 Drug: morphine IVP or IV 2 mg IVP once over 4 mins Route: IVP; Infused Over: 4 mins; al5 Site: right forearm; 06:50 Drug: Methocarbamol PO 1500 mg PO once Route: PO; al5 Medication: 05:16 VIS not applicable for this client. al5 Outcome: 06:50 Decision to Hospitalize by Provider. sp4 16:58 Patient left the ED. ld1 Signatures: Dispatcher [employer] EDMS Jen Webster RN RN ld1 Maria Elena Holman6 Uzair Jaramillo MD MD sp4 Cait Johansen RN RN al5 Ernestina St RN RN br2 GELY HIGHTOWER RN RN dd2
--- NOTE | 2024-10-24 06:50 | EDPHYS ---
Physician Documentation [facility] Name: Rasheed Dodson Age: 54 yrs Sex: Male : 1970 Arrival Date: 10/24/2024 Time: 04:43 Bed 8 Private MD: ED Physician Uzair Jaramillo HPI: 10/24 04:56 This 54 yrs old Male presents to ER via Unassigned with complaints of Pain All sp4 Over. 07:10 Very pleasant 54-year-old male presents with complaint of generalized pain. Patient has sp4 history of end-stage renal disease and left below-knee amputation. Dr. Chavez is vat skimmer. Historical: - Allergies: 05:05 CEPHALOSPORINS; br2 05:05 PENICILLINS; br2 - PMHx: 05:05 hemodialysis- MWF; br2 - Immunization history:: Adult Immunizations not up to date. - Infectious Disease History:: Denies. - Social history:: Smoking status: Patient reports the use of cigarette tobacco products, denies chronic smoking, but will smoke occasionally. - Family history:: not pertinent. ROS: 07:10 Constitutional: Positive for generalized pain positive for shortness of breath sp4 07:10 All other systems are negative, Exam: 07:10 Constitutional: Physically debilitated male with left below-knee amputation, sp4 dialysis catheter in place Head/Face: Normocephalic, atraumatic. Eyes: Pupils equal round and reactive to light, extra-ocular motions intact. Lids and lashes normal. Conjunctiva and sclera are not injected. Cornea within normal limits. Periorbital areas with no swelling, redness, or edema. ENT: Nares patent. No nasal discharge, no septal abnormalities noted. Tympanic membranes are normal and external auditory canals are clear. Oropharynx with no redness, swelling, or masses, exudates, or evidence of obstruction, uvula midline. Mucous membranes moist. Neck: Trachea midline, no thyromegaly or masses palpated, and no cervical lymphadenopathy. Supple, full range of motion without nuchal rigidity, or vertebral point tenderness. Chest/axilla: Normal chest wall appearance and motion. Nontender with no deformity. No lesions are appreciated. Cardiovascular: Regular rate and rhythm with a normal S1 and S2. No gallops, murmurs, or rubs. Normal PMI, no JVD. No pulse deficits. Respiratory: Lungs have equal breath sounds bilaterally, clear to auscultation and percussion. No rales, rhonchi or wheezes noted. No increased work of breathing, no retractions or nasal flaring. Abdomen/GI: Soft, with normal bowel sounds. No distension or tympany. No guarding or rebound. No evidence of tenderness throughout. Back: No spinal tenderness. No costovertebral tenderness. Skin: Warm, dry with normal turgor. Normal color with no rashes, no lesions, and no evidence of cellulitis. MS/ Extremity: Pulses equal, no cyanosis. Neurovascular intact. Full, normal range of motion. Left below-knee amputation with well-healed stump Neuro: Awake and alert, GCS 15, oriented to person, place, time, and situation. Cranial nerves II-XII grossly intact. Motor strength 5/5 in all extremities. Sensory grossly intact. Psych: Awake, alert, with orientation to person, place and time. Behavior, mood, and affect are within normal limits 07:10 ECG was reviewed by the Attending Physician. EKG at 0 516 normal sinus rhythm rate 65 prolonged QT otherwise normal. Vital Signs: 05:01 BP 155 / 67; Pulse 65; Resp 22; Temp 97.8(O); Pulse Ox 92% on R/A; Weight 109 kg; br2 Height 89 ft. 2 in. ; 06:05 BP 145 / 66; Pulse 64; Resp 17; Pulse Ox 98% on 2 lpm NC; dd2 06:39 BP 135 / 59; Pulse 64; Resp 17; Pulse Ox 96% on 2 lpm NC; dd2 05:01 Body Mass Index 0.15 (109.00 kg, 2717.8 cm) br2 Jasmin Coma Score: 07:10 Eye Response: spontaneous(4). Motor Response: obeys commands(6). Verbal Response: sp4 oriented(5). Total: 15. MDM: 05:01 Medical Screening Exam initiated sp4 06:31 ED course: The patient is 54 years old and is Male; Chest pain. TECHNIQUE: Frontal view sp4 of the chest. COMPARISON: None. FINDINGS: LUNGS: Perihilar and basilar predominant streaky and hazy airspace opacities, favoring pulmonary edema with bibasilar passive atelectasis. PLEURAL SPACE: Left larger than right pleural effusions. No appreciable pneumothorax. MEDIASTINUM: Enlarged cardiomediastinal silhouette. BONES/JOINTS: Multilevel spondylosis. VASCULATURE: Partially visualized left medial upper extremity vascular stent. IMPRESSION: Cardiomegaly with pulmonary edema and left larger than right pleural effusions. Electronically signed by: Osorio Clay MD. 07:14 Differential Diagnosis altered mental status, sepsis, flu. Data reviewed: vital signs, sp4 nurses notes, old medical records, lab test result(s), EKG, radiologic studies, plain films. Consideration of Admission/Observation Patient was admitted/placed on observation. Escalation of care including admission/observation considered. Management of patient was discussed with the following: Hospitalist: Admit team . ED course: Stable for admission for acute pulmonary edema pleural effusions hypoxemia and generalized pain.. 10/24 04:56 Order name: Basic Metabolic Panel; Complete Time: 06:22 sp4 10/24 04:56 Order name: CBC with Diff; Complete Time: 06:22 sp4 10/24 04:56 Order name: LFT's; Complete Time: 06:22 sp4 10/24 04:56 Order name: Magnesium; Complete Time: 06:22 sp4 10/24 04:56 Order name: NT PRO-BNP; Complete Time: 06:22 sp4 10/24 04:56 Order name: PT-INR; Complete Time: 06:22 sp4 10/24 04:56 Order name: Troponin HS; Complete Time: 06:22 sp4 10/24 04:58 Order name: COVID-19 Ag + Flu A+B Ag; Complete Time: 06:22 sp4 10/24 07:19 Order name: Urinalysis w/ reflexes EDMS 10/24 07:19 Order name: Basic Metabolic Panel EDMS 10/24 07:19 Order name: Basic Metabolic Panel EDMS 10/24 07:19 Order name: Basic Metabolic Panel EDMS 10/24 07:19 Order name: Basic Metabolic Panel EDMS 10/24 07:19 Order name: Basic Metabolic Panel EDMS 10/24 07:19 Order name: Basic Metabolic Panel EDMS 10/24 07:19 Order name: CBC with Automated Diff EDMS 10/24 07:19 Order name: CBC with Automated Diff EDMS 10/24 07:19 Order name: CBC with Automated Diff EDMS 10/24 07:19 Order name: CBC with Automated Diff EDMS 10/24 07:19 Order name: CBC with Automated Diff EDMS 10/24 07:19 Order name: CBC with Automated Diff EDMS 10/24 07:19 Order name: Magnesium EDMS 10/24 07:19 Order name: Magnesium EDMS 10/24 07:19 Order name: Magnesium EDMS 10/24 07:19 Order name: Magnesium EDMS 10/24 07:19 Order name: Magnesium EDMS 10/24 07:19 Order name: Magnesium EDMS 10/24 07:19 Order name: Phosphorus EDMS 10/24 07:19 Order name: Phosphorus EDMS 10/24 07:19 Order name: Phosphorus EDMS 10/24 07:19 Order name: Phosphorus EDMS 10/24 07:19 Order name: Phosphorus EDMS 10/24 07:19 Order name: Phosphorus EDMS 10/24 07:19 Order name: Troponin High Sensitivity EDMS 10/24 07:19 Order name: Troponin High Sensitivity EDMS 10/24 07:19 Order name: Troponin High Sensitivity EDMS 10/24 12:20 Order name: Creatine Phosphokinase EDMS 10/24 16:48 Order name: Hep B surface AG w/Reflex EDMS 10/24 16:48 Order name: Hepatitis B Surface Ab, QL/QN EDMS 10/24 04:56 Order name: XRAY Chest (1 view) sp4 10/24 04:56 Order name: EKG; Complete Time: 04:57 sp4 10/24 07:19 Order name: CONS Physician Consult EDMS 10/24 04:56 Order name: Cardiac monitoring; Complete Time: 05:15 sp4 10/24 04:56 Order name: EKG - Nurse/Tech; Complete Time: 05:15 sp4 10/24 04:56 Order name: IV Saline Lock; Complete Time: 05:15 sp4 10/24 04:56 Order name: Labs collected and sent; Complete Time: 05:15 sp4 10/24 04:56 Order name: O2 Per Protocol; Complete Time: 05:15 sp4 10/24 04:56 Order name: O2 Sat Monitoring; Complete Time: 05:15 sp4 EC:16 Rate is 65 beats/min. Rhythm is regular, Normal Sinus Rhythm. QRS [place] is Normal. [place] sp4 interval is normal. QRS interval is normal. QT interval is prolonged. No Q waves. T waves are Normal. No ST changes noted. Clinical impression: No evidence of ischemia. Interpreted by me. Reviewed by me. Administered Medications: 05:27 Drug: morphine IVP or IV 4 mg IVP once over 4 mins Route: IVP; Infused Over: 4 mins; al5 Site: right forearm; 06:04 Follow up: Response: No adverse reaction; No change in condition; Pain is unchanged, al5 physician notified 05:27 Drug: Ondansetron IVP 4 mg IVP once; over 2 minutes Route: IVP; Site: right forearm; al5 06:04 Follow up: Response: No adverse reaction al5 06:50 Drug: Calcium Gluconate IVPB 1 grams IVPB once over 60 mins; (mix in NS 100 mL) Route: al5 IVPB; Infused Over: 60 mins; Site: right forearm; 06:50 Drug: morphine IVP or IV 2 mg IVP once over 4 mins Route: IVP; Infused Over: 4 mins; al5 Site: right forearm; 06:50 Drug: Methocarbamol PO 1500 mg PO once Route: PO; al5 Disposition Summary: 10/24/24 06:50 Hospitalization Ordered Notes: Hospitalization Status: Inpatient Admission sp4 Provider: Maura Smith sp4 Condition: Stable sp4 Problem: new sp4 Symptoms: have improved sp4 Bed/Room Type: Standard sp4 Location: Telemetry/MedSurg (Inpatient)(10/24/24 15:37) Room Assignment: [facility](10/24/24 15:37) bd Diagnosis - Acute pulmonary edema sp4 - Generalized pain, influenza A, end-stage renal disease on hemodialysis, sp4 bilateral pleural effusions, acute volume overload with hypoxemia Forms: - Medication Reconciliation Form sp4 - SBAR form sp4 - Leadership Thank You Letter sp4 Signatures: Dispatcher [employer] EDMS Nano Estevez Kelly, RN RN kb3 Uzair Jaramillo MD MD sp4 Cait Johansen RN RN al5 Ernestina St RN RN br2 Corrections: (The following items were deleted from the chart) 08:08 06:50 Telemetry/MedSurg (Inpatient) sp4 kb3 08:08 06:50 sp4 kb3 15:37 08:08 [facility] ER HOLD kb3 bd 15:37 08:08 ERHOLD- kb3 bd
--- NOTE | 2024-10-24 07:26 | P.HP ---
Certification for Inpatient Patient admitted to: Observation With expected LOS: <2 Midnights Patient will require the following post-hospital care: None Practitioner: I am a practitioner with admitting privileges, knowledge of patient current condition, hospital course, and medical plan of care. Services: Services provided to patient in accordance with Admission requirements found in Title 42 Section 412.3 of the Code of Federal Regulations <Jennifer Breen - Last Filed: 10/24/24 20:26> Patient History Date of Service: 10/24/24 Reason for admission: ESRD fluid volume overload, NSTEMI History of Present Illness: Rasheed Dodson is a 54 year old male with Pmhx HTN, ESRD who presents to the ED with generalized body aches that caused him to be disconnected from dialysis on Tuesday and he was unable to return to dialysis. On evaluation, he is uncomfortable, breath sounds clear, Vital signs stable. Laboratory evaluation Trop 144.5, H&H 10/32, BUN/creatinine 28/9.09 GFR 6, BNP 61,021. Chest x-ray report "Cardiomegaly with pulmonary edema and left larger than right pleural effusions." [place] will be admitted to hospitalist service for further evaluation and treatment for Pulmonary Edema 2/2 fluid volume overload - Past Medical/Surgical History Diabetic: Yes -: ESRD (Dr. Chavez/ Yoni) -: HTN -: DM II -: Diastolic CHF -: Anemia -: Left BKA - Social History Smoking Status: Current every day smoker Alcohol use: No CD- Drugs: No <Jennifer Breen - Last Filed: 10/24/24 20:26> Date of Service: 10/24/24 <Maura Smith - Last Filed: 10/24/24 20:42> Allergies cephalexin Allergy (Unknown, Verified 10/24/24 19:09) Hives/Rash Penicillins Allergy (Unknown, Verified 10/24/24 19:09) Hives/Rash Home Medications: NIFEdipine [Nifedipine ER] 60 mg PO DAILY 10/24/24 Review of Systems Other: Per HPI <Jennifer Breen - Last Filed: 10/24/24 20:26> Physical Examination - Physical Exam General: Alert, Oriented x3, Other (uncomfortable) HEENT: Atraumatic, Normocephalic, PERRLA Neck: Supple Respiratory: Clear to auscultation bilaterally, Normal air movement Cardiovascular: Normal pulses, Regular rate/rhythm, Normal S1 S2 Capillary refill: <2 Seconds Gastrointestinal: Normal bowel sounds, Soft and benign Musculoskeletal: No clubbing Integumentary: No rashes Neurological: Normal speech, Normal tone - Studies Laboratory Data (last 24 hrs) 10/24/24 10/24/24 10/24/24 05:13 05:13 05:13 WBC 3.20 L Hgb 10.4 L Hct 32.6 L Plt Count 216 PT 13.6 H INR 1.20 Sodium 135 L Potassium 3.7 BUN 28 H Creatinine 9.09 H Glucose 86 Magnesium 2.1 Total Bilirubin 0.6 AST 26 ALT 29 Alkaline Phosphatase 109 <Jennifer Breen - Last Filed: 10/24/24 20:26> - Studies Laboratory Data (last 24 hrs) 10/24/24 10/24/24 10/24/24 05:13 05:13 05:13 WBC 3.20 L Hgb 10.4 L Hct 32.6 L Plt Count 216 PT 13.6 H INR 1.20 Sodium 135 L Potassium 3.7 BUN 28 H Creatinine 9.09 H Glucose 86 Magnesium 2.1 Total Bilirubin 0.6 AST 26 ALT 29 Alkaline Phosphatase 109 <Maura Smith - Last Filed: 10/24/24 20:42> Assessment and Plan - Plan Assessent and Plan Pulmonary Edema 2/2 fluid volume overload ESRD -Dr. Chavez consulted -Dialysis will control volume level NSTEMI Diastolic CHF - continue home medications -continuous telemetry -consult cardiology -Asa, lipitor -ECHO pending -Flu/covid negative -trend troponin -Continuous telemetry Myalgia unspecified Generalized body aches Hypocalcemia -Likely 2/2 recent flu diagnosis -CPK ordered -Replaced calcium Prolonged QT -Careful use of Zofran, Phenergan, Inapsine -EKG in the morning for QTc evaluation HTN -continue home medications DVT ppx heparin Full code LOS 24 hour OBS Discharge Plan: Home Plan to discharge in: 48 Hours - Advance Directives Does patient have a Living Will: No Does patient have a Durable POA for Healthcare: No <Jennifer Breen - Last Filed: 10/24/24 20:26> Physician Review: Patient Assessed, Agree with Above Assessment and Plan <Maura Smith - Last Filed: 10/24/24 20:42>
[2024-10-24] MEDS: ASPIRIN EC 81 MG TAB PO ONE (07:57)
[2024-10-24 08:07] VITALS: BMI 35.4
[2024-10-24] MEDS: HEPARIN 5000 UNIT/ML 1 ML VIAL SQ SCH (09:00)
[2024-10-24] MEDS ORDERED: ASPIRIN 81 MG CHEWABLE TABLET ONE (09:08)
[2024-10-24] MEDS ORDERED: HEPARIN 5000 UNIT/ML 1 ML VIAL ONE (09:08)
[2024-10-24] MEDS: ONDANSETRON 4 MG/2 ML VIAL IV PRN (09:39)
[2024-10-24] MEDS: MORPHINE 4 MG/ML SYR IV PRN (09:39)
--- NOTE | 2024-10-24 10:38 | P.CNS ---
Date of Consult: 10/24/24 Chief Complaint: ESRD fluid volume overload, NSTEMI History of Present Illness: Patient with PMH of HTN, DM, ESRD on HD, left leg amputation due to sepsis, presented with generalized body aches for last few days, denies chest pain, no SOB, no palpitations, no syncope. Allergies cephalexin Allergy (Unknown, Unverified 10/17/24 08:01) Hives/Rash Penicillins Allergy (Unknown, Unverified 10/17/24 08:01) Hives/Rash Home medications list reviewed: Yes - Past Medical/Surgical History Diabetic: Yes -: ESRD (Dr. Chavez/ Yoni) -: HTN -: DM II -: Diastolic CHF -: Anemia - Social History Smoking Status: Former smoker Review of Systems 10-point ROS is otherwise unremarkable Physical Examination Temp Pulse Resp BP Pulse Ox 18 96 10/24/24 09:39 10/24/24 09:39 General: Alert, In no apparent distress HEENT: Atraumatic, PERRLA, Mucous membr. moist/pink, EOMI, Sclerae nonicteric Neck: Supple, 2+ carotid pulse no bruit, No LAD, Without JVD or thyroid abnormality Respiratory: Clear to auscultation bilaterally, Normal air movement Cardiovascular: Regular rate/rhythm, Normal S1 S2 Gastrointestinal: Normal bowel sounds, No tenderness Musculoskeletal: No tenderness Integumentary: No rashes Neurological: Normal gait, Normal speech, Normal tone, Normal affect Lymphatics: No axilla or inguinal lymphadenopathy Laboratory Data (last 24 hrs) 10/24/24 10/24/24 10/24/24 05:13 05:13 05:13 WBC 3.20 L Hgb 10.4 L Hct 32.6 L Plt Count 216 PT 13.6 H INR 1.20 Sodium 135 L Potassium 3.7 BUN 28 H Creatinine 9.09 H Glucose 86 Magnesium 2.1 Total Bilirubin 0.6 AST 26 ALT 29 Alkaline Phosphatase 109 - Problems (1) Elevated troponin Current Visit: Yes Status: Acute Plan: Patient denies having chest pain, EKG is normal, trend troponin for 3 sets, if trending down or flat with no significant delta then outpatient cardiac work up with stress test get echo continue ASA 81 mg daily lipitor 40 mg daily
[2024-10-24] MEDS: droPERidol 5 MG/2 ML VIAL IV ONE (11:08)
--- NOTE | 2024-10-24 11:30 | P.CNS ---
Date of Consult: 10/24/24 Reason for Consult: ESRD, missed HD, vascular congestion Requesting Physician: Maura Smith Chief Complaint: ESRD fluid volume overload, NSTEMI History of Present Illness: Pt is a 54 year old male who is well known to our group with hx of malignant HTN, related ESRD for several years via Lt UE AVG, a hx of Type II DM, not currently on medication, obesity, BKA and other who reported malaise, dyspnea, pleurisy about a week ago and was diagnosed with Influenza A. He denies being prescribed any medication. He missed a session of dialysis yesterday and on Tue ran shorter treatments as he has been having generalized body aches. He does not report fevers, chills, cough or other. Allergies cephalexin Allergy (Unknown, Unverified 10/17/24 08:01) Hives/Rash Penicillins Allergy (Unknown, Unverified 10/17/24 08:01) Hives/Rash - Past Medical/Surgical History Diabetic: Yes -: ESRD (Dr. Chavez/ [facility]) -: HTN -: DM II -: Diastolic CHF -: Anemia - Social History Smoking Status: Former smoker Review of Systems General: Malaise, As per HPI Eyes: Unremarkable ENT: Unremarkable Respiratory: As per HPI Cardiovascular: Other (Troponin leak on admission) Gastrointestinal: Nausea, Vomiting Genitourinary: Unremarkable Musculoskeletal: Back Pain, Leg Pain Integumentary: Unremarkable Neurological: Unremarkable Physical Examination Temp Pulse Resp BP Pulse Ox 18 96 10/24/24 09:39 10/24/24 09:39 General: Alert, In no apparent distress, Cooperative HEENT: Atraumatic, Normocephalic Neck: Supple Respiratory: Normal air movement, Other (Non tachypnec) Cardiovascular: No edema, Regular rate/rhythm Gastrointestinal: Soft and benign, Non-distended, No guarding Musculoskeletal: No swelling, No contractures, Other (BKA) Integumentary: No rashes Neurological: Normal speech, Normal tone, Normal affect Laboratory Data (last 24 hrs) 10/24/24 10/24/24 10/24/24 05:13 05:13 05:13 WBC 3.20 L Hgb 10.4 L Hct 32.6 L Plt Count 216 PT 13.6 H INR 1.20 Sodium 135 L Potassium 3.7 BUN 28 H Creatinine 9.09 H Glucose 86 Magnesium 2.1 Total Bilirubin 0.6 AST 26 ALT 29 Alkaline Phosphatase 109 Conclusions/Impression: A/P) 1. ESRD 2nd to chronic conditions on iHD MWF. Missed HD earlier today. Labs however show acceptable metab profile, no sig azotemia likely due to reduced intake with illness. 2. Will perform shorter, lower flows treatment for clearance and UF, see orders for details 3. NSTEMI, cardiomegaly -getting TTE in the ER, will f/u findins 4. Acute pulm edema in the setting of missed dialysis, other -will target UF of 2-2.5L today and f/u 5. Body aches, myalgias unspecified -likely related to recent viral infection, check CPK and myoglobin. Total Ca lower, will place on Ca supplementation temp. Cont other supportive measures
[2024-10-24] MEDS ORDERED: droPERidol 5 MG/2 ML VIAL ONE (11:46)
[2024-10-24] MEDS: CALCIUM CARBONATE 500 MG TAB PO SCH (11:51)
--- NOTE | 2024-10-24 14:06 | ECHO ---
HEIGHT: 5 ft 9 in WEIGHT: 240 lb 0 oz DATE OF STUDY: 10/24/[address]: Jennifer Breen NP 2-DIMENSIONAL: YES M.MODE: YES DOPPLER: YES COLOR FLOW: YES TDS: NO PORTABLE: YES DEFINITY: NO BUBBLE STUDY: NO DIAGNOSIS: NSTEMI CARDIAC HISTORY: CATHERIZATION:YES SURGERY: NO PROSTHETIC VALVE: NO PACEMAKER: NO MEASUREMENTS (cm) DIASTOLIC (NORMALS) SYSTOLIC (NORMALS) IVSd 1.3 (0.6-1.2) LA Diam 3.1 (1.9-4.0) LVEF 60-65% LVIDd 5.2 (3.5-5.7) LVIDs 3.3 (2.0-3.5) %FS 37% LVPWd 1.3 (0.6-1.2) Ao Diam 2.8 (2.0-3.7) 2 DIMENSIONAL ASSESSMENT: RIGHT ATRIUM: NORMAL LEFT ATRIUM: NORMAL RIGHT VENTRICLE: NORMAL LEFT VENTRICLE: NORMAL TRICUSPID VALVE: NORMAL MITRAL VALVE: NORMAL PULMONIC VALVE: NORMAL AORTIC VALVE: NORMAL PERICARDIAL EFFUSION: NONE AORTIC ROOT: NORMAL LEFT VENTRICULAR WALL MOTION: NORMAL. DOPPLER/COLOR FLOW: GRADE II DIASTOLIC DYSFUNCTION. COMMENTS: 1. NORMAL LEFT VENTRICULAR SYSTOLIC FUNCTION. NORMAL LEFT VENTRICULAR EJECTION FRACTION 60-65%. 2. GRADE II DIASTOLIC DYSFUNCTION. 3. MILDLY ELEVATED FILLING PRESSURE. RIGHT ATRIAL PRESSURE 10-15 mmHg. TECHNOLOGIST: JESICA CORDOVA
[2024-10-24 16:47] LABS: Hepatitis B surface AG Interp. Nonreactive (Nonreactive)
[2024-10-24 16:48] LABS: Hepatitis B Surface Ab - Quant < 3.10 mIU/mL (<8.0)
[2024-10-24 16:49] LABS: HBsAG Nonreactive Report Report
[2024-10-24] MEDS: HYDROMORPHONE HCL 1 MG/ML INJ IV PRN (17:29)
[2024-10-24] MEDS: ATORVASTATIN 40 MG TAB PO SCH (21:00)
[2024-10-25 07:58] LABS: Absolute Lymphocytes (CBC) 0.4 K/uL (0.7-4.9); Absolute Monocytes 0.5 K/uL (0.1-1.3); Absolute Neutrophil 3.4 K/uL (1.8-8.0); Basophils % 0.5 % (0-1.3); Eosinophils % 0.7 % (0-4.4); Hematocrit 33.8 % (39.6-49.0); Hemoglobin 10.8 g/dL (13.6-17.9); Lymphocytes % 8.5 % (15.3-44.8); MCH 28.7 pg (27.0-35.0); MCHC 31.9 g/dL (32.0-36.0); MPV 7.8 fL (7.6-11.3); Monocytes % 11.5 % (3.3-12.3); Neutrophils % 78.8 % (41.7-73.7); Nucleated Red Blood Cells % 0.5 % (0-0); Platelets 219 thou/uL (152-406); RBC Red Blood Cell Count 3.75 M/uL (4.33-5.43); Red Cell Distribution Width 18.8 % (12.1-15.2)
[2024-10-25 08:16] LABS: Anion Gap 15.2 mEq/L (5.0-15.0); Magnesium 2.4 mg/dL (1.6-2.4); Phosphorus 7.4 mg/dL (2.5-4.9); Potassium 4.2 mEq/L (3.5-5.1)
[2024-10-25] MEDS: NIFEDIPINE XL 60 MG TABLET PO SCH (09:00)
[2024-10-25] MEDS: ASPIRIN EC 81 MG TAB PO SCH (09:00)
[2024-10-25] MEDS ORDERED: NIFEDIPINE XL 60 MG TABLET PO SCH (10:06)
--- NOTE | 2024-10-25 10:47 | P.PN ---
Nephrology note (S) On a couple liters of O2 via NC this AM, seen resting comfortably, denies any orthopnea or resp distress overnight, some cough present. Low appetite, some nausea with meds, completed abbreviated HD yesterday without issues. (O) vitals reviewed in the EMR General: Alert, In no apparent distress, Cooperative HEENT: Atraumatic, Normocephalic, LFNC Neck: Supple Respiratory: Normal air movement, Other (Non tachypnec), no rhonchi anteriorly Cardiovascular: No edema, Regular rate/rhythm Gastrointestinal: Soft and benign, Non-distended, No guarding Musculoskeletal: No swelling, No contractures, Other (Lt BKA) Integumentary: No rashes Neurological: Normal speech, Normal tone, Normal affect Laboratory Data (last 24 hrs) Reviewed Conclusions/Impression: A/P) 1. ESRD 2nd to chronic conditions on iHD MWF. Missed OP HD earlier Tue and OP treatment Mon was shortened. Labs however show acceptable metab profile, no sig azotemia likely due to reduced intake with illness. 2. Did yesterday perform shorter, lower flows treatment for clearance and UF, will plan for next HD tmrw, see orders for details 3. NSTEMI, cardiomegaly -serial troponins showed downward trend. No sig LVEF dysfunction, some chronic diastolic dysfunction 4. Acute pulm edema in the setting of missed dialysis, other -will target additional UF tmrw, will wean O2 as tolerated 5. Body aches, myalgias unspecified -likely related to recent viral infection, checked CPK and myoglobin, former was not elevated. Total Ca lower, did place on Ca supplementation temp. Cont other supportive measures 6. Hyperphosphatemia -placed on phos binders
--- NOTE | 2024-10-25 11:18 | P.PN ---
Subjective Date of Service: 10/25/24 Chief Complaint: ESRD fluid volume overload, NSTEMI Subjective: No new changes, No C/O voiced, Tolerating diet, Ambulating, Improving Review of Systems 10-point ROS is otherwise unremarkable Physical Examination - Vital Signs Temperature: 97.5 F Blood Pressure: 112/56 Pulse: 71 Respirations: 16 Pulse Ox (%): 93 - Physical Exam General: Alert, In no apparent distress HEENT: Atraumatic, PERRLA, EOMI Neck: Supple, JVD not distended Respiratory: Clear to auscultation bilaterally, Normal air movement Cardiovascular: Regular rate/rhythm, Normal S1 S2 Gastrointestinal: Normal bowel sounds, No tenderness Musculoskeletal: No tenderness Integumentary: No rashes Neurological: Normal speech, Normal tone, Normal affect Lymphatics: No axilla or inguinal lymphadenopathy - Studies Medications List Reviewed: Yes Assessment And Plan - Current Problems (Diagnosis) (1) Elevated troponin Current Visit: Yes Status: Acute Plan: Patient denies having chest pain, EKG is normal, Troponin donw trended to normal, most likely type 2 MO, outpatient cardiac work up with stress test Echo shows normal EF and gaviria motion, Grade I DD continue ASA 81 mg daily lipitor 40 mg daily Cardiology will sign off, please call with any questions Physician Review: Patient Assessed, Agree with Above Assessment and Plan
[2024-10-25] MEDS: SEVELAMER CARBONATE 800 MG TABLET PO SCH (12:00)
--- NOTE | 2024-10-25 12:59 | RAD REPORT ---
EXAM: XR Abdomen 1 View (KUB) HISTORY: [facility] MAIN nausea and vomiting COMPARISON: None FINDINGS: Single view of the abdomen shows a nonspecific, nonobstructive bowel gas pattern. No suspi cious calcifications are seen. The bones are unremarkable. IMPRESSION: Unremarkable exam
[2024-10-25] MEDS ORDERED: DOCUSATE NA/SENNA CONC 1 TAB PO PRN (13:28)
--- NOTE | 2024-10-25 17:30 | P.PN ---
Subjective Date of Service: 10/25/24 Chief Complaint: ESRD fluid volume overload, NSTEMI Subjective: New changes, C/O voiced (Continued abdominal pain and vomiting), NPO <Roman Lane - Last Filed: 10/25/24 17:34> Date of Service: 10/25/24 <Maura Smith - Last Filed: 10/25/24 21:33> Review of Systems 10-point ROS is otherwise unremarkable General: Weakness Respiratory: SOB with Excertion Gastrointestinal: Nausea, Vomiting, Abdominal Pain, Constipation <Roman Lane - Last Filed: 10/25/24 17:34> Physical Examination - Vital Signs Temperature: 97.8 F Blood Pressure: 168/77 Pulse: 62 Respirations: 16 Pulse Ox (%): 94 - Physical Exam General: Alert, In no apparent distress HEENT: Atraumatic, PERRLA, EOMI Neck: Supple, JVD not distended Respiratory: Normal air movement, Diminished, Expiratory wheezes Cardiovascular: Regular rate/rhythm, Normal S1 S2 Capillary refill: <2 Seconds Gastrointestinal: Hypoactive, Non-distended, No ascites, Tenderness Musculoskeletal: No tenderness Integumentary: No rashes Neurological: Normal speech, Normal tone, Normal affect Lymphatics: No axilla or inguinal lymphadenopathy External genitalia: Deferred Rectal: Deferred - Studies Medications List Reviewed: Yes <Roman Lane - Last Filed: 10/25/24 17:34> Assessment And Plan - Plan Pulmonary Edema 2/2 fluid volume overload ESRD -Dr. Chavez consulted and following -Dialysis M/W/F -Monitor electrolytes and kidney function -Continue Sevelamer TID -Continue with supplemental 02 PRN and wean as tolerated NSTEMI Diastolic CHF -Continue to monitor output -Continuous telemetry -Cardiology consulted with recs to continue Asa and atorvastatin, signed off (10/25) -Echo shows normal EF and gaviria motion, Grade I DD -Troponin down-trended to normal Myalgia unspecified Hx of Neuropathy Hypocalcemia -Recent flu diagnosis -Flu/covid;negative -CPK ordered and pending result -Continue Calcium 500mg BID -Gabapentin 100mg X 1dose for now Prolonged QT -Careful use of Zofran, Phenergan, Inapsine -EKG in the morning for QTc evaluation HTN -Continue home medication Nefedipine -Monitor BP per unit protocol Constipation Abd pain with N/V -Clear liquids if tolerating -KUB ordered without acute findings -CT abd/pelvis ordered -Monitor electrolytes -IV Zofran for now DVT Ppx: Heparin Code Status: Full code Discharge Plan: Home Plan to discharge in: 48 Hours - Code Status/Comfort Care Code Status Assessed: Yes (FULL CODE) Physician Review: Patient Assessed, Agree with Above Assessment and Plan <oRman Lane - Last Filed: 10/25/24 17:34> Physician Review: Patient Assessed, Agree with Above Assessment and Plan <Maura Smith - Last Filed: 10/25/24 21:33>
[2024-10-25] MEDS: ACETAMINOPHEN 325 MG TABLET PO PRN (17:56)
--- NOTE | 2024-10-25 19:48 | RAD REPORT ---
EXAMINATION: CT ABDOMEN AND PELVIS WITHOUT CONTRAST CLINICAL INDICATION: Nausea/Vomiting TECHNIQUE: CT abdomen and pelvis was performed, without IV contrast, as per department protocol. Axia l, sagittal and coronal reconstructions were obtained. One or more of the following dose reduction techniques were used: Automated exposure control, adjustment of the mA and kV according to the patien t size, and iterative reconstruction. Unless otherwise specified, incidental findings do not require dedicated imaging follow-up. COMPARISON: No prior exam. FINDINGS: The lack of intravenous contrast limits the sensitivity of this exam for evaluation of solid visceral organs, vascular structures, and retroperitoneum. LOWER CHEST: Moderate bibasilar lung opacities are present suggesting atelectasis or infiltrate/pneum onia. Small bilateral pleural effusions. LIVER:Normal in size and contour. No focal lesion. Grossly unremarkable gallbladder. SPLEEN: Normal size. No focal lesion. PANCREAS: No mass, ductal dilation, or juliana-pancreatic fluid. ADRENALS: Normal; no mass. KIDNEYS AND URETERS: Normal size and contour. No hydronephrosis. URINARY BLADDER: Normal contour. GASTROINTESTINAL TRACT: No evidence of bowel obstruction, significant free fluid, free air or abscess . Moderate fat-containing umbilical hernia. APPENDIX: Normal appendix. LYMPH NODES: No lymphadenopathy. MUSCULOSKELETAL: No acute or suspicious osseous abnormality. ADDITIONAL FINDINGS: Calcified vas deferens IMPRESSION: Bibasilar lung opacities with small effusions may represent bibasilar pneumonia. Moderate fat-containing umbilical hernia.
[2024-10-25] MEDS: GABAPENTIN 100 MG CAP PO SCH (21:52)
[2024-10-26] MEDS ORDERED: HYDRALAZINE HCL 20 MG/ML VIAL IV PRN (04:50)
[2024-10-26 06:10] LABS: Absolute Eosinophils 0.1 K/uL (0-0.5); Absolute Lymphocytes (CBC) 0.6 K/uL (0.7-4.9); Absolute Monocytes 0.7 K/uL (0.1-1.3); Basophils % 0.6 % (0-1.3); Eosinophils % 3.9 % (0-4.4); Hematocrit 31.8 % (39.6-49.0); Hemoglobin 10.2 g/dL (13.6-17.9); Lymphocytes % 16.9 % (15.3-44.8); MCH 28.6 pg (27.0-35.0); MCHC 32.2 g/dL (32.0-36.0); MCV 88.9 fL (80-100); MPV 7.7 fL (7.6-11.3); Monocytes % 19.8 % (3.3-12.3); Neutrophils % 58.8 % (41.7-73.7); Nucleated Red Blood Cells % 0.2 % (0-0); Platelets 213 thou/uL (152-406); RBC Red Blood Cell Count 3.58 M/uL (4.33-5.43); Red Cell Distribution Width 19.1 % (12.1-15.2)
[2024-10-26 06:23] LABS: Magnesium 2.3 mg/dL (1.6-2.4); Phosphorus 6.7 mg/dL (2.5-4.9)
--- NOTE | 2024-10-26 07:51 | RAD REPORT ---
EXAMINATION: ONE VIEW CHEST XR CLINICAL INDICATION: Shortness of breath TECHNIQUE: Frontal chest projection is submitted. Examination is limited by patient positioning and t echnique. COMPARISON: 10/24/2024 FINDINGS: Moderate bilateral pulmonary opacities likely pulmonary edema. Small moderate bilateral pleural effus ions, larger on the left. Heart is moderately enlarged. No displaced fractures identified. IMPRESSION: Moderate CHF versus volume overload pattern.
--- NOTE | 2024-10-26 10:02 | P.PN ---
Subjective Date of Service: 10/26/24 Chief Complaint: ESRD fluid volume overload, NSTEMI Subjective: No new changes, C/O voiced (Patient reports sleeping well last night and that his generalized pain improved after taking night dose of gabapentin. Denies any overnight episodes of vomiting and requesting solid foods at this time) Review of Systems 10-point ROS is otherwise unremarkable Respiratory: Shortness of Breath, SOB with Excertion Physical Examination - Vital Signs Temperature: 97.6 F Blood Pressure: 176/78 Pulse: 62 Respirations: 16 Pulse Ox (%): 95 - Physical Exam General: Alert, In no apparent distress HEENT: Atraumatic, PERRLA, EOMI Neck: Supple, JVD not distended Respiratory: Normal air movement, Diminished Cardiovascular: No edema, Regular rate/rhythm, Normal S1 S2 Capillary refill: <2 Seconds Gastrointestinal: Hypoactive, No tenderness, Distended Musculoskeletal: No tenderness Integumentary: No rashes Neurological: Normal speech, Normal tone, Normal affect Lymphatics: No axilla or inguinal lymphadenopathy - Studies Medications List Reviewed: Yes Assessment And Plan - Plan Pulmonary Edema 2/2 fluid volume overload ESRD -Dr. Chavez consulted and following -Dialysis M/W/F -Monitor electrolytes and kidney function -Continue Sevelamer TID -Continue with supplemental 02 PRN and wean as tolerated -02 trial ordered, follow up needed -Discussed plan with nephrology team, plans for dialysis today and to wean off oxygen, if patient continues to need 02 then patient may be scheduled for dialysis again tomorrow NSTEMI Diastolic CHF -Continue to monitor output -Continuous telemetry -Cardiology consulted with recs to continue Asa and atorvastatin, signed off (10/25) -Echo shows normal EF and gaviria motion, Grade I DD -Troponin down-trended to normal Myalgia unspecified Hx of Neuropathy Hypocalcemia -Recent flu diagnosis -Flu/covid;negative -CPK ordered and pending result -Continue Calcium 500mg BID -Gabapentin 100mg at bedtime for now Prolonged QT -Careful use of Zofran, Phenergan, Inapsine -EKG in the morning for QTc evaluation Hypertension -Continue home medication Nefedipine, patient may continue home dose 60mg once discharged per Nephro discussion -Monitor BP per unit protocol Constipation, resolved Abd pain with N/V, resolved Chronic hernia, stable -Tolerating diet at this time -KUB ordered without acute findings -CT abd/pelvis ordered with stable chronic hernia -Monitor electrolytes -IV Zofran PRN DVT Ppx: Heparin Code Status: Full code Discharge planning: Possible DC home once cleared by Nephrology Discharge Plan: Home Plan to discharge in: 24 Hours - Code Status/Comfort Care Code Status Assessed: Yes (FULL CODE) Physician Review: Patient Assessed, Agree with Above Assessment and Plan
[2024-10-26 10:22] LABS: Basophilic Stippling 1+; Blood Morphology Comment NOTED (NOT SEEN); Macrocytosis 1+; Platelet Estimate ADEQ; Polychromasia 1+; White Blood Cell Scan OK (OK)
--- NOTE | 2024-10-26 11:09 | P.PN ---
Nephrology note (S) Remains on LFNC, denies any nausea this AM, myalgias better, CXR findings and CT scan report reviewed with pt. (O) vitals reviewed in the EMR General: Alert, In no apparent distress, Cooperative HEENT: Atraumatic, Normocephalic, LFNC Neck: Supple Respiratory: Normal air movement, Other (Non tachypnec), coarse, scattered rales, reduced BS at bases Cardiovascular: No edema, Regular rate/rhythm Gastrointestinal: Soft and benign, Non-distended, No guarding Musculoskeletal: No swelling, No contractures, Other (Lt BKA) Integumentary: No rashes Neurological: Normal speech, Normal tone, Normal affect Laboratory Data (last 24 hrs) Reviewed Conclusions/Impression: A/P) 1. ESRD 2nd to chronic conditions on iHD MWF. Missed OP HD earlier Tue last week and OP treatment Mon was shortened. Labs however show acceptable metab profile, no sig azotemia likely due to reduced intake with illness. 2. Did Wed perform shorter, lower flows treatment for clearance and UF, will do full HD session today, see orders for details 3. NSTEMI, cardiomegaly -serial troponins showed downward trend. No sig LVEF dysfunction, some chronic diastolic dysfunction 4. Acute pulm edema in the setting of missed dialysis, other +/- infectious opacities, pleural effusiosn NOS -will target additional UF today, will wean O2 as tolerated post treatment 5. Body aches, myalgias unspecified -likely related to recent viral infection, checked CPK and myoglobin, former was not elevated. Total Ca lower, did place on Ca supplementation temp. Cont other supportive measures 6. Hyperphosphatemia -placed on phos binders
--- NOTE | 2024-10-26 14:48 | EKG ---
Test Date: 2024-10-24 Test Time: 05:16:08 Pulling Machine Operator: MEASUREMENT RESULTS: Intervals: Rate: 65 WA: 208 QRSD: 102 QT: 492 QTc: 511 [place]: P: 44 WA: 208 QRS: -4 T: 59 INTERPRETIVE STATEMENTS: Normal sinus rhythm Prolonged QT Abnormal ECG Compared to ECG 10/17/2024 07:11:45 Prolonged QT interval now present Electronically Signed On 10-26-24 14:43:04 CDT by Ajay Campo
[2024-10-26] MEDS: NIFEDIPINE XL 60 MG TABLET PO SCH (20:53)
[2024-10-26] MEDS ORDERED: NIFEDIPINE XL 30 MG TABLET PO SCH (21:00)
[2024-10-27 05:50] VITALS: O2SAT 97
[2024-10-27 06:07] LABS: Absolute Eosinophils 0.1 K/uL (0-0.5); Absolute Lymphocytes (CBC) 0.5 K/uL (0.7-4.9); Absolute Monocytes 0.7 K/uL (0.1-1.3); Basophils % 0.6 % (0-1.3); Eosinophils % 3.8 % (0-4.4); Hematocrit 32.3 % (39.6-49.0); Hemoglobin 10.5 g/dL (13.6-17.9); Lymphocytes % 14.5 % (15.3-44.8); MCH 29.1 pg (27.0-35.0); MCHC 32.5 g/dL (32.0-36.0); MCV 89.5 fL (80-100); MPV 7.3 fL (7.6-11.3); Monocytes % 20.2 % (3.3-12.3); Neutrophils % 60.9 % (41.7-73.7); Nucleated Red Blood Cells % 0.1 % (0-0); Platelets 217 thou/uL (152-406); RBC Red Blood Cell Count 3.62 M/uL (4.33-5.43); Red Cell Distribution Width 18.8 % (12.1-15.2)
[2024-10-27 06:22] LABS: Anion Gap 8.5 mEq/L (5.0-15.0); Magnesium 2.3 mg/dL (1.6-2.4); Phosphorus 4.3 mg/dL (2.5-4.9); Potassium 3.5 mEq/L (3.5-5.1)
--- NOTE | 2024-10-27 07:54 | P.PN ---
Subjective Date of Service: 10/27/24 Chief Complaint: ESRD fluid volume overload, NSTEMI Physical Examination - Vital Signs Temperature: 97.4 F Blood Pressure: 135/64 Pulse: 64 Respirations: 16 Pulse Ox (%): 97 - Studies Medications List Reviewed: Yes Assessment And Plan - Plan Pulmonary Edema 2/2 fluid volume overload ESRD -Dr. Chavez consulted and following -Dialysis M/W/F -Monitor electrolytes and kidney function -Continue Sevelamer TID -Continue with supplemental 02 PRN and wean as tolerated -02 trial ordered, follow up needed -Discussed plan with nephrology team, plans for dialysis today and to wean off oxygen, if patient continues to need 02 then patient may be scheduled for dialysis again tomorrow NSTEMI Diastolic CHF -Continue to monitor output -Continuous telemetry -Cardiology consulted with recs to continue Asa and atorvastatin, signed off (10/25) -Echo shows normal EF and gaviria motion, Grade I DD -Troponin down-trended to normal Myalgia unspecified Hx of Neuropathy Hypocalcemia -Recent flu diagnosis -Flu/covid;negative -CPK ordered and pending result -Continue Calcium 500mg BID -Gabapentin 100mg at bedtime for now Prolonged QT -Careful use of Zofran, Phenergan, Inapsine -EKG in the morning for QTc evaluation Hypertension -Continue home medication Nefedipine, patient may continue home dose 60mg once discharged per Nephro discussion -Monitor BP per unit protocol Constipation, resolved Abd pain with N/V, resolved Chronic hernia, stable -Tolerating diet at this time -KUB ordered without acute findings -CT abd/pelvis ordered with stable chronic hernia -Monitor electrolytes -IV Zofran PRN DVT Ppx: Heparin Code Status: Full code Discharge planning: Possible DC home once cleared by Nephrology Discharge Plan: Home Plan to discharge in: 24 Hours Physician Review: Patient Assessed, Agree with Above Assessment and Plan
[2024-10-27] MEDS: POTASSIUM CL SA 10 MEQ TAB PO ONE (09:05)
--- NOTE | 2024-10-27 13:52 | P.PN ---
Nephrology note (S) Remains on LFNC, tolerated HD yesterday, plan for home O2 arrangements based on testing noted, denies [place] with exertion. Discussed discharge plans (O) vitals reviewed in the EMR General: Alert, In no apparent distress, Cooperative HEENT: Atraumatic, Normocephalic, LFNC Neck: Supple Respiratory: Normal air movement, Other (Non tachypnec), coarse, scattered rales, reduced BS at bases Cardiovascular: No edema, Regular rate/rhythm Gastrointestinal: Soft and benign, Non-distended, No guarding Musculoskeletal: No swelling, No contractures, Other (Lt BKA) Integumentary: No rashes Neurological: Normal speech, Normal tone, Normal affect Laboratory Data (last 24 hrs) Reviewed Conclusions/Impression: A/P) 1. ESRD 2nd to chronic conditions on iHD MWF. Missed OP HD earlier Tue last week and OP treatment Last Tue was shortened. Labs however show acceptable metab profile, no sig azotemia likely due to reduced intake with illness. 2. Did Wed perform shorter, lower flows treatment for clearance and UF, did yesterday do full HD session, next HD tmrw 3. NSTEMI, cardiomegaly -serial troponins showed downward trend. No sig LVEF dysfunction, some chronic diastolic dysfunction 4. Acute pulm edema in the setting of missed dialysis, other +/- infectious opacities, pleural effusions NOS -still needing O2, will set up for home O2 on discharge, will revise EDW on discharge and will be aggressive with UF on HD this week at OP unit 5. Body aches, myalgias unspecified -likely related to recent viral infection, checked CPK and myoglobin, former was not elevated. Total Ca lower, did place on Ca supplementation temp. Cont other supportive measures 6. Hyperphosphatemia -cont phos binders
--- NOTE | 2024-10-27 14:27 | P.DS ---
Admission Date: 10/25/24 Discharge Date: 10/27/24 Disposition: ROUTINE DISCHARGE Discharge Condition: GOOD Reason for Admission: ESRD fluid volume overload, NSTEMI Brief History of Present Illness: Rasheed Dodson is a 54 year old male with Pmhx HTN, ESRD who presented to the ED with generalized body aches that caused him to be disconnected from dialysis on Tuesday and he was unable to return to dialysis. Patient had just got over having influenza prior to arrival to ED. Initial Laboratory evaluation Trop 144.5, H&H 10/32, BUN/creatinine 28/9.09 GFR 6, BNP 61,021. Chest x-ray report "Cardiomegaly with pulmonary edema and left larger than right pleural effusions."He was then admitted to hospitalist service for further evaluation and treatment for Pulmonary Edema 2/2 fluid volume overload Hospital Course: Pulmonary Edema 2/2 fluid volume overload ESRD Nephrology was consulted and patient received scheduled dialysis without complication while inpatient. Sevelamer to be continued TID, patient to follow strict renal diet and to follow up with nephrology outpatient. NSTEMI Diastolic CHF with hypoxia Prolonged QT Cardiology was consulted with recs for Asa and atorvastatin. Echo shows normal EF and gaviria motion, Grade I DDTroponin down-trended to normal. Patient failed room air trial desatting to 86% and required oxygen 1-2L/NC prior to discharging. Patient to continue with oxygen at home and to follow-up for further cardiac workup outpatient. Myalgia unspecified Hx of Neuropathy Hypocalcemia Patient had Recent flu diagnosis, however inpatient test Flu/covid were negative. Continue Calcium 500mg BID Gabapentin started and may be taken 100mg TID PRN. Follow up for outpatient repeat labs recommended Hypertension Continue home medication Nefedipine, patient may continue home dose 60mg once discharged per Nephro discussion. Monitor blood pressure at home Constipation Abd pain with N/V Chronic hernia KUB was ordered and without acute findings. CT abd/pelvis ordered and with stable chronic hernia. Patient with resolved symptoms prior to discharge and educated on emergent s/s to look for with chronic hernia. Vital Signs/Physical Exam: Temp Pulse Resp BP Pulse Ox 98.1 F 67 14 133/62 92 10/27/24 11:39 10/27/24 11:39 10/27/24 11:39 10/27/24 11:39 10/27/24 11:39 General: Alert, In no apparent distress HEENT: Atraumatic, PERRLA, EOMI Neck: Supple, JVD not distended Respiratory: Normal air movement, Crackles/rales, Other (Requiring 1-2L nasal cannula ) Cardiovascular: Regular rate/rhythm, Normal S1 S2 Capillary refill: <2 Seconds Gastrointestinal: Normal bowel sounds, No tenderness Musculoskeletal: No tenderness Integumentary: No rashes Neurological: Normal speech, Normal tone, Normal affect Lymphatics: No axilla or inguinal lymphadenopathy External genitalia: Deferred Rectal: Deferred Laboratory Data at Discharge: WBC 3.30 thou/uL (4.3-10.9) L 10/27/24 05:22 Hgb 10.5 g/dL (13.6-17.9) L 10/27/24 05:22 Hct 32.3 % (39.6-49.0) L 10/27/24 05:22 Plt Count 217 thou/uL (152-406) 10/27/24 05:22 PT 13.6 SECONDS (10-13.0) H 10/24/24 05:13 INR 1.20 10/24/24 05:13 Sodium 136 mEq/L (136-145) 10/27/24 05:22 Potassium 3.5 mEq/L (3.5-5.1) 10/27/24 05:22 BUN 14 mg/dL (7-18) 10/27/24 05:22 Creatinine 6.65 mg/dL (0.70-1.30) H 10/27/24 05:22 Glucose 108 mg/dL (74-106) H 10/27/24 05:22 Phosphorus 4.3 mg/dL (2.5-4.9) 10/27/24 05:22 Magnesium 2.3 mg/dL (1.6-2.4) 10/27/24 05:22 Total Bilirubin 0.6 mg/dL (0.2-1.0) 10/24/24 05:13 AST 26 U/L (15-37) 10/24/24 05:13 ALT 29 U/L (16-61) 10/24/24 05:13 Alkaline Phosphatase 109 U/L (45-117) 10/24/24 05:13 Home Medications: Atorvastatin Calcium [Lipitor] 40 mg PO BEDTIME 30 Days #30 tab 10/27/24 Calcium Carbonate [Oscal*] 500 mg PO BID #0 tab 10/27/24 Gabapentin [Neurontin*] 100 mg PO TID PRN 30 Days #90 cap 10/27/24 NIFEdipine [Nifedipine ER] 60 mg PO DAILY 30 Days #30 10/27/24 Sevelamer Carbonate [Renvela*] 1,600 mg PO TIDWM 30 Days #90 10/27/24 New Medications: Atorvastatin Calcium [Lipitor] 40 mg PO BEDTIME 30 Days #30 tab Gabapentin [Neurontin*] 100 mg PO TID PRN 30 Days #90 cap PRN Reason: Neuropathy pain NIFEdipine [Nifedipine ER] 60 mg PO DAILY 30 Days #30 Sevelamer Carbonate [Renvela*] 1,600 mg PO TIDWM 30 Days #90 Physician Discharge Instructions: Patient to continue outpatient dialysis as scheduled. Follow up with cardiology and nephrology within 1-2wks. Monitor blood glucose, blood pressures and oxygen saturation at home. Take all home medications as prescribed. Diet: Renal Activity: Ad debra Followup: Dionicio Chavez DO [Primary Care Provider] - Tony Vallejo [ACTIVE - CAN ADMIT] - Ajay Campo MD [ACTIVE - CAN ADMIT] - Time spent managing pt's care (in minutes): 34
[2024-10-27 16:20] VITALS: BP 148/70; TEMP 97.8
== END 2024-10-27 17:00 | disposition home or self-care (01) | DRG 640 ==
LOC: ER 04:43 → ERHOLD 07:12 → 2ND 16:45 → OBSVTOIN 10-25 14:40
PROVIDERS: ADMIT Family Medicine; ATTEND Internal Medicine Sleep Medicine
PROC: 5A1D70Z Performance of Urinary Filtration, Intermittent, Less than 6 Hours Per Day (ICD-10-PCS; principal; 2024-10-25)
DX: E87.70 Fluid overload, unspecified (principal); I21.A1 Myocardial infarction type 2; J81.0 Acute pulmonary edema; N18.6 End stage renal disease; I13.2 Hypertensive heart and chronic kidney disease with heart failure and with stage 5 chronic kidney disease, or end stage renal disease; I50.32 Chronic diastolic (congestive) heart failure; E11.22 Type 2 diabetes mellitus with diabetic chronic kidney disease; E11.40 Type 2 diabetes mellitus with diabetic neuropathy, unspecified; E83.51 Hypocalcemia; K59.00 Constipation, unspecified; E83.39 Other disorders of phosphorus metabolism; M79.10 Myalgia, unspecified site; J10.1 Influenza due to other identified influenza virus with other respiratory manifestations; F17.210 Nicotine dependence, cigarettes, uncomplicated; R94.31 Abnormal electrocardiogram [ECG] [EKG]; R79.89 Other specified abnormal findings of blood chemistry; Z88.0 Allergy status to penicillin; Z99.2 Dependence on renal dialysis; Z88.1 Allergy status to other antibiotic agents; Z11.52 Encounter for screening for COVID-19; Z89.512 Acquired absence of left leg below knee; Z91.158 Patient's noncompliance with renal dialysis for other reason
CPT/HCPCS: 36415; 71045; 74018; 74176; 80048; 80076; 82550; 82947; 83735; 83874; 83880; 84100; 84484; 85025; 85610; 86706; 87340; 87428; 90935; 93005; 93306; 96374; 96375; 99285; G0378; J0360; J0612; J1171; J1644; J1790; J2405